=== PATIENT | female | born 1945 | race Caucasian/White ===

== ENCOUNTER → 2017-02-04 | Outpatient (CLI) | payer BC ==
--- NOTE | 2017-02-04 15:06 | DIAGNOSTIC IMAGING REPORT ---
VENOUS DOPP LOWER EXT UNILAT CLINICAL HISTORY: LLE PAIN AND SWELLING, FULLNESS OF POPLITEAL SPACE pain. Edema. TECHNIQUE: Venous Doppler COMPARISON STUDY: None FINDINGS: Normal venous Doppler. No evidence for deep venous thrombosis. Complex popliteal cyst posterior to left knee measuring 7 x 5 x 3 cm. IMPRESSION: 1. Study is negative for deep venous thrombosis . 2. complex popliteal cyst posterior to left knee measuring 7 x 5 x 3 cm The above report was generated using voice recognition software. It may contain grammatical, syntax or spelling errors. Electronically signed by: Dony Otto M.D. 02/04/2017 3:05 PM Dictated Date/Time: 02/04/2017 3:02 PM
== END | disposition home or self-care (01) ==
LOC: C.ULTR 14:39
PROVIDERS: ATTEND Nurse Practitioner Family
DX: R60.0 Localized edema (principal); M71.22 Synovial cyst of popliteal space [Baker], left knee

== ENCOUNTER → 2017-09-14 | Outpatient (CLI) | payer BC ==
--- NOTE | 2017-09-14 10:40 | DIAGNOSTIC IMAGING REPORT ---
ABDOMEN COMPLETE (US) CLINICAL HISTORY: Hepatitis. Abdominal pain. COMPARISON STUDY: No previous studies for comparison. FINDINGS: Liver morphology is normal. No hepatic lesions are identified by sonography. There is no biliary ductal dilatation. The pancreatic body is normal. The head and tail are slightly obscured. Gallbladder is normal. There are no gallstones. The size of the spleen is normal. The left kidney measures 11.7 cm and the right kidney measures 10.3 cm. There is no hydronephrosis. No calculi or masses are identified by sonography. Caliber of the abdominal aorta is normal. There is no ascites. IMPRESSION: Unremarkable abdominal ultrasound. Electronically signed by: Norberto Clemente M.D. 09/14/2017 10:38 AM Dictated Date/Time: 09/14/2017 10:37 AM
== END | disposition home or self-care (01) ==
LOC: C.ULTRBC 09:35
PROVIDERS: ATTEND Internal Medicine Gastroenterology
DX: R10.9 Unspecified abdominal pain (principal)

== ENCOUNTER 2023-06-24 10:38 | Observation (INO) ==
--- NOTE | 2023-06-04 15:20 | PAT Medication Instructions ---
Medication Instructions Date of Service June 04, 2023 Home Medications acetaminophen 500 mg capsule 1,000 mg PO Q6H PRN ascorbic acid (vitamin C) 500 mg tablet (Vitamin C) 1,000 mg PO QAM lactobacillus combination no.4 3 billion cell capsule (Probiotic) 3,000 mmu cells PO HS meloxicam 7.5 mg tablet 15 mg PO QAM multivitamin 1 tab PO QAM ASK your surgeon for instructions meloxicam 7.5 mg tablet 15 mg PO QAM DO NOT take the morning of surgery ascorbic acid (vitamin C) 500 mg tablet (Vitamin C) 1,000 mg PO QAM multivitamin 1 tab PO QAM Take morning of surgery With a small sip of water, OTHERWISE NOTHING TO EAT OR DRINK AFTER MIDNIGHT: acetaminophen 500 mg capsule 1,000 mg PO Q6H PRN(if needed) Take evening before surgery acetaminophen 500 mg capsule 1,000 mg PO Q6H PRN(if needed) lactobacillus combination no.4 3 billion cell capsule (Probiotic) 3,000 mmu cells PO HS Other Notes If you have any questions please call us at [phone] or [phone] or [phone] or [phone]
--- NOTE | 2023-06-08 13:40 | Anesthesiology Consultation ---
Date of Service June 08, 2023 Assessment & Plan (1) Encounter for pre-operative examination: - Infectious disease screening: Per assessment on 06/08/23: No known infectious disease contacts or current infectious disease symptoms. No noted recent Covid positive test result. - Outpatient joint assessment: Pt currently scheduled for inpatient pathway. If surgeon requests review for outpatient joint pathway, patient is not recommended candidate for outpatient joint program from anesthesia standpoint based on available information. - Patient acceptable risk for surgery pending surgeon-ordered PCP preop evaluation (Rosalva BUTT, appt 06/10). Chart Review Chart Review: Patient seen in Pre Admission Testing Teaching & Discussion Pre-Anesthesia Teaching/Discussion Notes: Instructed NPO after midnight before surgery,except medications with 15 cc of water. Medication instructions provided according to the PAT guidelines. History Surgery Operation Date: 06/24/23 10:40 Proposed Procedures p Left Total Hip Arthroplasty - Aramis Mullen MD Height/Weight Height: 5 ft 6 in Weight: 59.9 kg Allergies Allergy/AdvReac Type Severity Reaction Status Date / Time No Known Allergies Allergy Verified 06/04/23 14:25 Medications Home Medications Medication Instructions Recorded Confirmed Last Taken acetaminophen 500 mg capsule 1,000 mg PO Q6H PRN Pain 06/04/23 06/04/23 Unknown ascorbic acid (vitamin C) 500 mg 1,000 mg PO QAM 06/04/23 06/04/23 Unknown tablet (Vitamin C) lactobacillus combination no.4 3 3,000 mmu cells PO HS 06/04/23 06/04/23 Unknown billion cell capsule (Probiotic) meloxicam 7.5 mg tablet 15 mg PO QAM 06/04/23 06/04/23 Unknown multivitamin 1 tab PO QAM 06/04/23 06/04/23 Unknown Past Medical History Medical History Arthritis Positive CASA (antinuclear antibody) Per remote records Exercise / Class Metabolic Activity III < 4 Walking/Shop/Light housework Past Surgical History Surgical History Hx of bilateral cataract extraction Hx of colonoscopy Past Anesthesia History No Hx of Anesthesia Complications and No Family Hx of Anesthesia Complications History of PONV No Hx of Motion Sickness and History of PONV (1970s post-op child /delivery- nausea. No similar issues with other surgeries/anesthesia.) Social History Smoking Status: Former smoker Do You Dip or Chew Tobacco: No Smoking End Date: Quit 1998 Hx Alcohol Use: No Hx Substance Use: No substance use type: does not use Review of Systems Patient denies chest pain, shortness of breath, dyspnea on exertion, fever, chills, cough, wheezing, palpitations. Physical Exam Vital Signs BP 135/72 P 69 TEMP 98.9 SP02 96%RA RESP 16 Physical Mildly decreased cervical extension range of motion. Full TMJ range of motion. TMD 3 finger breaths Mallampati Score 3 Dentition: upper front bridge, missing sides/molars Lungs: clear throughout to auscultation Cardiac: regular rate and rhythm, no murmurs noted Spine: normal Carotid arteries: negative bruit Extremities: no LE edema Lab Results Anesthesia Preop Results Results Anesthesia Widget: WBC 5.44 K/ul (4.8-10.8) 06/08/23 Hgb 11.4 g/dl (12.0-16.0) L 06/08/23 Hct 35.2 % (37.0-47.0) L 06/08/23 Plt 324 K/uL (130-400) 06/08/23 Na 134 mmol/L (136-145) L 06/08/23 K 3.9 mmol/L (3.5-5.1) 06/08/23 Cl 99 mmol/L (98-107) 06/08/23 CO2 27 mmol/L (21-32) 06/08/23 BUN 14 mg/dl (6-23) 06/08/23 Creat 0.61 mg/dl (0.6-1.2) 06/08/23 Glucose Level 96 mg/dl (70-99(Fasting)) 06/08/23 PT 11.3 Seconds (9.0-12.0) 06/08/23 PTT 34 Seconds (21-31) H 06/08/23 INR 1.0 (0.9-1.1) 06/08/23 Urine Color Yellow 06/08/23 Urine Appearance Clear (Clear) 06/08/23 Urine pH 6.0 (4.5-7.5) 06/08/23 Urine Specific [place] 1.019 (1.000-1.030) 06/08/23 Urine Protein Negative (Negative) 06/08/23 Urine Glucose (UA) Negative (Negative) 06/08/23 Urine Ketones 2+ (Negative) H 06/08/23 Urine Blood Negative (Negative) 06/08/23 Urine Nitrite Negative (Negative) 06/08/23 Urine Bilirubin Negative (Negative) 06/08/23 Urine Urobilinogen Negative (Negative) 06/08/23 Urine Leukocyte Esterase Negative (Negative) 06/08/23 Blood Type A Positive 06/08/23 Antibody Screen NEGATIVE 06/08/23 Testing Electrocardiogram Date: 06/08/23 SR at 68bpm. PACs. PRWP, consider anterior IL vs lead placement vs LVH. Compared to 06/20/1998, QRS axis shifted left per senior vice president & general counsel comparison. Chest X-Ray Date: 06/08/23 FINDINGS: Cardiomediastinal and hilar silhouettes are within normal limits. No pneumothorax, pleural effusion or airspace consolidation. The bones appear grossly intact. Mild sigmoidal scoliosis of the spine. IMPRESSION: No acute process.
[~2023-06-24 10:38] MED LIST: BUPIVACAINE 0.5 % 5 MG/1 ML PF 10ML VIAL ONE
[2023-06-24] MEDS ORDERED: MIDAZOLAM HCL 1 MG/ML 2ML VIAL ONE (10:41)
[2023-06-24] MEDS ORDERED: fentaNYL citrate PF 100 MCG/2 ML VIAL ONE (10:41)
--- NOTE | 2023-06-24 11:06 | History & Physical Bridge Note ---
Date of Service June 24, 2023 History & Physical Bridge Note I have examined the patient, reviewed the History & Physical and in the interval since the performance of the History & Physical I have noted the following changes of clinical significance: no changes noted
[2023-06-24] MEDS: ACETAMINOPHEN 500 MG TAB PO SCH ×2 (11:20→15:35)
[2023-06-24] MEDS: LR 500ML BOLUS, THEN 15ML/HR IV SCH (11:20)
[2023-06-24] MEDS: LR 60ML/HR IV SCH (11:21)
[2023-06-24] MEDS: traMADol HCL 50 MG TABLET PO SCH (11:25)
[2023-06-24] MEDS ORDERED: fentaNYL citrate PF 100 MCG/2 ML VIAL IV PRN (11:25)
[2023-06-24] MEDS: CeleBREX 200 MG CAP PO SCH (11:25)
[2023-06-24] MEDS: FAMOTIDINE 20 MG TAB PO SCH (11:25)
[2023-06-24] MEDS ORDERED: ONDANSETRON INJ 2 MG/ML 2 ML VIAL IV PRN ×2 (11:25→13:18)
[2023-06-24] MEDS ORDERED: ATROPINE SULFATE 0.1 MG/ML 10ML SYR IV PRN (11:25)
[2023-06-24] MEDS ORDERED: ePHEDrine sulfate 50 MG/ML AMP IV PRN (11:25)
[2023-06-24] MEDS: dexAMETHasone**PF** 10 MG/ML VIAL IV SCH (11:26)
[2023-06-24] MEDS: Scopolamine 1 MG TDSY TD SCH (11:26)
[2023-06-24] MEDS: TRANEXAMIC ACID 1,000 MG **IV Pre-op IV SCH (11:39)
[2023-06-24] MEDS: ceFAZolin 2000MG 2,000 MG/15 ML SYR IV SCH ×2 (11:47→19:50)
[2023-06-24] MEDS: TRANEXAMIC ACID 1,000 MG **IV Intra-op IV SCH (12:42)
[2023-06-24] MEDS: ORTHO JOINT ANESTHETIC ONE (12:48)
[2023-06-24] MEDS: ROPIV 0.5% 246mg, Ketorolac 30mg, EPINEPHrine 0.5mg in NSS INFIL SCH (12:48)
--- NOTE | 2023-06-24 13:10 | Operative Report ---
Post Operative Report Pre & Post Diagnosis Operation Date: 06/24/23 11:20 Pre-Op Diagnosis: Left Hip Osteoarthritis Post-Op Diagnosis: Left Hip Osteoarthritis I identified the patient and participated in the time-out.: Yes Procedure Operation Date: 06/24/23 11:20 Actual Procedures p Left Total Hip Arthroplasty(Left) - Aramis Mullen MD Surgeon Aramis Mullen MD Professional Development Instructor CARLOS Saldaña PA-C. No resident or fellow was available to assist. Estimated Blood Loss 50 Findings Consistent with Post-Op Diagnosis Specimens Left femoral head Anesthesia Type Spinal MAC Complications none Disposition Disposition: Recovery Room Indications 77-year-old female with left hip osteoarthritis refractory to conservative management. X-rays demonstrate [id number]-[id number] disease, flattening of the lateral femoral head, and marginal osteophytes. I had a long discussion with her about the risks and benefits of surgery, alternatives to surgery, and expected outcomes. After reviewing all these she elected to proceed with surgery. All questions were answered. Informed consent was signed. Description of Procedure Patient was identified in the preoperative holding area where the surgical site, Left hip, was marked. A spinal anesthetic was placed, then the patient was brought back to the main operating room, placed in the operating table and moved into the lateral decubitus position. Axillary roll was placed. All bony prominences were padded. Perioperative antibiotics and tranexamic acid 1 gram IV were administered. The operative extremity was prepped and draped in the normal sterile fashion. Prior to incision a multidisciplinary timeout was called. All in the room were in agreement. We began by making an incision for a posterior approach to the hip. We dissected down through subcutaneous tissues to the level of the fascia. The fascia was incised in line with the incision. Charnley bow was placed. Fatty tissue was reflected posteriorly off the back of the greater trochanter to expose the piriformis and short external rotators of the hip. Quadratus femoris was taken off the femur subperiosteally. The piriformis and short external rotators were dissected off the posterior aspect of the hip. A box cut was made in the capsule. Inferior hip capsule was released off the femur. The femoral head was dislocated. The femoral neck cut was made at our preoperative template. The acetabulum was then exposed. The labrum was sharply excised. Contents of the cotyloid fossa were removed with electrocautery. We then began reaming at a size 8 mm less than our preoperative template. We reamed up by [address] the way up to a size with 54 mm cup. This gave us good bleeding cancellus bone circumferentially. The acetabulum was then irrigated out and dried. The real [place] Gription cup was then impacted down into position with 45 degrees of lateral opening and 25 degrees of anteversion. A single cancellous bone screw was placed up into the ilium. Excellent fixation was obtained. A trial liner for a 36 mm femoral head was then placed. Next we turned our attention to the femur. The lateral neck was removed with a box osteotome. Intramedullary guide was used to establish the intramedullary canal. We then broached all the way up to a size 2. We began trialing with a standard offset neck and a +5 head. Hip was reduced. Leg lengths were symmetric. The hip was stable in extension and external rotation, and stable in the sleeper position. At 90 degrees of hip flexion the hip could be internally rotated 70 degrees before levering out of the cup. I was very happy with the stability exam. Therefore the hip was dislocated and the femoral trial was removed. The acetabulum was re-exposed, and the trial liner was removed. [place] hole eliminator screw was placed. An Altrx polyethylene liner for a 36 mm femoral head was then impacted into the shell. The locking mechanism was checked to ensure that it had engaged which it had. The femur was re-exposed. The femoral canal was irrigated and dried. The real size 2 standard offset Actis femoral stem was opened up. This was impacted down into position. The 36 mm ceramic femoral head with + 5 mm offset was opened up and gently impacted down onto the trunnion. The hip was atraumatically reduced. Another 1 gram of IV tranexamic acid was started prior to closure. The wound was irrigated out with sterile Betadine solution. The periarticular injection cocktail was then placed. The short external rotators, piriformis, and posterior capsule were repaired through drill holes in the greater trochanter using #2 Vicryl. The fascia was run with a looped #1 PDS. The subcutaneous layer was closed with #1 PDS. The dermal layer was closed with 2-0 Vicryl. Zip line was used for the skin followed by a Silverlon dressing. A compressive dressing was then placed. The patient was then rolled supine. Leg lengths were rechecked and were symmetric. An abduction pillow was placed. Sedation was lifted and the patient was transferred to the recovery room in stable condition. Summary of implants: Depuy [place] Gription Acetabular Shell Sector Cup, 54 mm outer diameter [place] Cancellous bone screw, 6.5 x 40 mm [place] hole eliminator Princeton Altrx Polyethylene Acetabular Liner, Neutral, with a 36 mm inner diameter DePuy Actis collared cementless Femoral stem, 12/14 taper, size 2 standard 36 mm ceramic femoral head with +5 offset Postoperative course: Patient will be admitted overnight from the recovery room. Patient will be weightbearing as tolerated with posterior hip precautions. Aspirin for DVT prophylaxis I attest to the content of the Intraoperative Record and any orders documented therein. Any exceptions are noted below.
[2023-06-24] MEDS ORDERED: diphenhydrAMINE 50 MG/ML VIAL IV PRN (13:18)
[2023-06-24] MEDS ORDERED: MAGNESIUM HYDROXIDE SUSP 30 ML UDC PO PRN (13:18)
[2023-06-24] MEDS ORDERED: ALUMINUM/MAGNESIUM SUSP 30 ML UDC PO PRN (13:18)
[2023-06-24] MEDS ORDERED: HYDROmorphone INJ 0.5 MG/0.5 ML SYR IV PRN (13:18)
[2023-06-24] MEDS ORDERED: traMADol HCL 50 MG TABLET PO PRN (13:18)
[2023-06-24] MEDS ORDERED: METOCLOPRAMIDE HCL INJ 5 MG/ML 2 ML VIAL IV PRN (13:18)
[2023-06-24] MEDS ORDERED: bisacodyL 10 MG SUPP PR PRN (13:18)
[2023-06-24] MEDS ORDERED: NALOXONE HCL 0.4 MG/1 ML VIAL/CARP IV PRN (13:18)
[2023-06-24] MEDS ORDERED: oxyCODONE HCL IR 5 MG TAB (IMMEDIATE RELEASE) PO PRN (13:18)
--- NOTE | 2023-06-24 13:18 | Operative Report ---
Post Operative Report Pre & Post Diagnosis Operation Date: 06/24/23 11:20 Pre-Op Diagnosis: Left Hip Osteoarthritis Post-Op Diagnosis: Left Hip Osteoarthritis I identified the patient and participated in the time-out.: Yes Procedure Operation Date: 06/24/23 11:20 Actual Procedures p Left Total Hip Arthroplasty(Left) - Aramis Mullen MD Surgeon Aramis Mullen MD Second Worker CARLOS Saldaña PA-C. No resident or fellow was available to assist. Estimated Blood Loss 50 Findings Consistent with Post-Op Diagnosis Specimens femoral head Description of Procedure I was present during the entire procedure assisting with positioning, prepping, draping, wound retraction, wound closure, dressing and abduction pillow placement. No fellow present. Please see Dr. Mullen procedure note for specifics of the case. I attest to the content of the Intraoperative Record and any orders documented therein. Any exceptions are noted below.
[2023-06-24] MEDS ORDERED: ACETAMINOPHEN 500 MG TAB PO PRN (13:27)
--- NOTE | 2023-06-24 14:26 | Anesthesiology Progress Note ---
Date of Service June 24, 2023 Anesthesia Post Procedure Vital Signs Vital Signs: Temp Pulse Pulse Resp BP BP Pulse Ox 06/24/23 14:10 68 12 144/63 H 98 06/24/23 14:00 67 13 136/64 98 06/24/23 13:50 72 16 145/66 H 98 06/24/23 13:40 74 13 157/69 H 98 06/24/23 13:30 72 16 138/58 L 100 06/24/23 13:20 70 16 128/54 L 100 06/24/23 13:17 36.1 C L 71 14 116/58 L 98 06/24/23 10:55 06/24/23 10:55 36.8 C 66 18 190/86 H 99 O2 Del Method O2 Flow Rate 06/24/23 14:10 Room Air 06/24/23 14:00 Room Air 06/24/23 13:50 Room Air 06/24/23 13:40 Room Air 06/24/23 13:30 Room Air 06/24/23 13:20 Oxymask 6 06/24/23 13:17 Oxymask 6 06/24/23 10:55 Room Air 06/24/23 10:55 Room Air Pain Intensity Left Hip: Pain Intensity: 0 Transfer of Care Handoff Completed per policy Notes Mental Status: alert / awake / arousable Patient Amnestic to Procedure: Yes Nausea / Vomiting: adequately controlled Pain: adequately controlled Airway Patency, RR, SpO2: stable & adequate BP & HR: stable & adequate Hydration State: stable & adequate Anesthetic Complications: no major complications apparent and Pt Satisfied with anesthetic care
--- NOTE | 2023-06-24 15:26 | XRay Report ---
XR pelvis 1-2V routine CLINICAL HISTORY: In PACU - Post Surgical TECHNIQUE: A single frontal view of the pelvis was obtained. Comparison: Comparison is made to pelvis radiograph 06/08/2023 FINDINGS: Patient is status post total hip arthroplasty with expected postsurgical changes including soft tissu e swelling, and subcutaneous emphysema. No periarticular lucency or hardware fracture is seen. IMPRESSION: Expected postoperative appearance status post placement of total hip arthroplasty. ACT 112: Negative or not required by law. Electronically signed by: Gasper Cooper M.D. 06/24/2023 3:24 PM
[2023-06-24] MEDS: KETOROLAC TROMETHAMINE 15 MG/ML VIAL IV SCH (15:35)
[2023-06-24] MEDS: SODIUM CHLORIDE 0.9% 1,000 ML IV SCH (15:36)
[2023-06-24] MEDS: Scopolamine CHECK PATCH PLACEMENT SCH (19:50)
[2023-06-24] MEDS: ASPIRIN 81 MG ECTAB PO SCH (19:51)
[2023-06-24] MEDS: DOCUSATE SODIUM 100 MG CAP PO SCH (19:51)
[2023-06-24] MEDS: SENNA 8.6 MG TAB PO SCH (19:55)
[2023-06-24] MEDS: ADVANCED PROBIOTIC 625 MG CAPSULE PO SCH (19:56)
[2023-06-25 06:45] LABS: Basophils # (auto) 0.01 K/uL (0.00-0.20); Basophils % (auto) 0.1 %; Hematocrit (blood only) 29.2 % (37.0-47.0); Hemoglobin 9.4 g/dl (12.0-16.0); Immature Granulocytes # (auto) 0.06 K/uL (0.01-0.20); Immature Granulocytes % (auto) 0.7 %; Lymphocytes # (auto) 0.72 K/uL (1.20-3.40); Mean Corpuscular Hemoglobin 28.7 pg (25.0-34.0); Mean Corpuscular Hgb Conc 32.2 g/dL (32.0-36.0); Mean Corpuscular Volume 89.3 fL (80.0-100.0); Mean Platelet Volume 8.9 fL (9.4-12.4); Monocytes # (auto) 0.65 K/uL (0.11-0.59); Monocytes % (auto) 7.2 %; Neutrophils # (auto) 7.54 K/uL (1.40-6.50); Platelet Count 277 K/uL (130-400); RDW Coefficient of Variation 11.9 % (11.5-14.5); RDW Standard Deviation 37.9 fL (36.4-46.3); Red Blood Count 3.27 M/uL (4.20-5.40); White Blood Count 8.98 K/ul (4.8-10.8)
[2023-06-25 06:59] LABS: BUN Creatinine Ratio 22.2 (10-20); Calcium 8.4 mg/dl (8.6-10.3); Creatinine Clr Calc Pharmacy 81.4 ml/min; Est GFR (African American) 106.2 ml/min; Est GFR (Non-African American) 91.7 ml/min
[2023-06-25] MEDS: dexAMETHasone 4 MG TAB PO SCH (08:27)
[2023-06-25] MEDS: ASCORBIC ACID 500 MG TAB PO SCH (08:27)
[2023-06-25] MEDS: MULTIVITAMIN TAB PO SCH (08:27)
[2023-06-25] MEDS ORDERED: NON-FORMULARY MEDICATION (Multivitamin Tablet) PO SCH (09:00)
--- NOTE | 2023-06-25 09:43 | Orthopedic Progress Note ---
Date of Service June 25, 2023 Assessment & Plan (1) S/P total hip arthroplasty: Plan: Total hip precautions reviewed Weightbearing as tolerated with walker assistance PT/OT Ice with easy wrap Keep Silverlon dressing in place Abduction pillow use x 6 weeks DVT prophylaxis with ARETHA stockings and Aspirin Pain control with p.o. medication Plan is to discharge home later today with in-home physical therapy for the first 2 weeks Follow-up with [facility] as previously scheduled With questions contact our clinic at [phone] Admission and Anticipated Discharge Date Admission Date: June 24, 2023 Subjective This 77-year-old female is day 1 status post left total hip arthroplasty. Patient states she is doing very well. She states she really has no pain presently. Currently she denies chest pain, shortness of breath, fever, chills, sweats, numbness or tingling in her left lower extremity. She also denies nausea, vomiting, diarrhea voiding. Review of Systems Review of Systems: All systems reviewed & are unremarkable except as noted in Subjective Physical Exam Physical Exam: Left hip: Outer dressing was removed. Silverlon is clean dry and intact and left in place. Patient is able to actively dorsi and plantarflex her foot without issue. She is able to perform active straight leg raise test. Her quad strength is 3+ out of 5. She has no pain with logroll testing. Patient has no discomfort with light passive hip flexion near 90 degrees with light passive internal or external hip rotation. She is neurovascularly intact in the left lower extremity. Results & Data Vital Signs (Past 12 Hours) Vital Signs Temp Pulse Pulse Resp BP Pulse Ox O2 Del Method 06/25/23 07:45 36.7 C 53 L 20 132/66 98 Room Air 06/25/23 03:34 36.4 C L 62 18 124/68 97 Room Air 06/24/23 22:47 36.5 C 63 16 110/60 98 Room Air Diagnostic Findings Laboratory Results WBC 8.98 K/ul (4.8-10.8) 06/25/23 05:31 RBC 3.27 M/uL (4.20-5.40) L 06/25/23 05:31 Hgb 9.4 g/dl (12.0-16.0) L 06/25/23 05:31 Hct 29.2 % (37.0-47.0) L 06/25/23 05:31 MCV 89.3 fL (80.0-100.0) 06/25/23 05:31 MCH 28.7 pg (25.0-34.0) 06/25/23 05:31 MCHC 32.2 g/dL (32.0-36.0) 06/25/23 05:31 RDW Std Deviation 37.9 fL (36.4-46.3) 06/25/23 05:31 RDW Coeff of Jonathan 11.9 % (11.5-14.5) 06/25/23 05:31 Plt Count 277 K/uL (130-400) 06/25/23 05:31 MPV 8.9 fL (9.4-12.4) L 06/25/23 05:31 Immature Gran % (Auto) 0.7 % 06/25/23 05:31 Neut % (Auto) 84.0 % 06/25/23 05:31 Lymph % (Auto) 8.0 % 06/25/23 05:31 [place] % (Auto) 7.2 % 06/25/23 05:31 Eos % (Auto) 0.0 % 06/25/23 05:31 Baso % (Auto) 0.1 % 06/25/23 05:31 Neut # (Auto) 7.54 K/uL (1.40-6.50) H 06/25/23 05:31 Lymph # (Auto) 0.72 K/uL (1.20-3.40) L 06/25/23 05:31 [place] # (Auto) 0.65 K/uL (0.11-0.59) H 06/25/23 05:31 Eos # (Auto) 0.00 K/uL (0.00-0.50) 06/25/23 05:31 Baso # (Auto) 0.01 K/uL (0.00-0.20) 06/25/23 05:31 Immature Gran # (Auto) 0.06 K/uL (0.01-0.20) 06/25/23 05:31 Sodium 135 mmol/L (136-145) L 06/25/23 05:31 Potassium 4.0 mmol/L (3.5-5.1) 06/25/23 05:31 Chloride 103 mmol/L (98-107) 06/25/23 05:31 Carbon Dioxide 26 mmol/L (21-32) 06/25/23 05:31 Anion Gap 6 (3-11) 06/25/23 05:31 BUN 12 mg/dl (6-23) 06/25/23 05:31 Creatinine 0.54 mg/dl (0.6-1.2) L 06/25/23 05:31 Est Cr Clr Drug Dosing 81.4 ml/min 06/25/23 05:31 Est GFR ( Amer) 106.2 ml/min 06/25/23 05:31 Est GFR (Non-Af Amer) 91.7 ml/min 06/25/23 05:31 BUN/Creatinine Ratio 22.2 (10-20) H 06/25/23 05:31 Glucose 110 mg/dl (70-99(Fasting)) H 06/25/23 05:31 Calcium 8.4 mg/dl (8.6-10.3) L 06/25/23 05:31 Impressions Pelvis X-Ray 06/24/23 13:18 XR pelvis 1-2V routine CLINICAL HISTORY: In PACU - Post Surgical TECHNIQUE: A single frontal view of the pelvis was obtained. Comparison: Comparison is made to pelvis radiograph 06/08/2023 FINDINGS: Patient is status post total hip arthroplasty with expected postsurgical changes including soft tissue swelling, and subcutaneous emphysema. No periarticular lucency or hardware fracture is seen. IMPRESSION: Expected postoperative appearance status post placement of total hip arthroplasty. ACT 112: Negative or not required by law. Electronically signed by: Gasper Cooper M.D. 06/24/2023 3:24 PM
--- NOTE | 2023-06-25 10:52 | Discharge Summary ---
Date of Service June 25, 2023 Admission HPI Per Admitting Provider History of Present Illness Funmi is a 77-year-old female here today for preoperative history and physical for left total hip arthroplasty with Dr. Luis Antonio elliott. She has been dealing with bilateral hip pain but elected to proceed with getting her left hip replaced because that is the hip that is weaker for her. She has very limited mobility. She has difficulty putting on socks and shoes. She likes to be active outside and would like to get back to doing that. She did not try any injections as it was not recommended due to the end stages of her arthritis. She has difficulty lifting her left leg when climbing the stairs. She denies any history of heart attack, blood clots or stroke. No current liver disease however she reports that she did have hepatitis after having mono in 1963 but no lasting issues. She is not a smoker. Admission Exam Per Admitting Provider Physical Exam Vitals & Measurements T: 36.0 C HR: 77 (Monitored) RR: 18 BP: 140/70 SpO2: 97% HT: 157.5 cm WT: 59.6 kg WT: 59.600 kg (Dosing) BMI: 24.03 General: Pt is well nourished, seated on the exam table AA&O, in NAD, calm and cooperative during exam HENT: Nontraumatic, no gross deformity, hearing and vision grossly in-tact, PERRL Heart: +S1, +S2, RRR, no murmurs appreciated Lungs: CTABL, no wheezing appreciated ROM: Flexion 70/ External rotation 25/ Internal rotation 0 - Log roll + Impingement test + TANNER test + Stinchfield test - Tenderness over trochanteric bursa Principal Diagnosis Left hip osteoarthritis Discharge Exam Left hip: Outer dressing was removed. Silverlon is clean dry and intact and left in place. Patient is able to actively dorsi and plantarflex her foot without issue. She is able to perform active straight leg raise test. Her quad strength is 3+ out of 5. She has no pain with logroll testing. Patient has no discomfort with light passive hip flexion near 90 degrees with light passive internal or external hip rotation. She is neurovascularly intact in the left lower extremity. Discharge Data Allergies Allergy/AdvReac Type Severity Reaction Status Date / Time No Known Allergies Allergy Verified 06/24/23 10:53 Procedures Performed Operation Date: 06/24/23 11:20 Actual Procedures p Left Total Hip Arthroplasty(Left) - Aramis Mullen MD Hospital Course (1) S/P total hip arthroplasty: Patient had an uneventful overnight stay following left total hip arthroplasty. She states her pain is well-controlled with p.o. pain medication. She states she really does not have any pain at present. She is very pleased with the results of the surgery. She is planning on discharge home later this morning with interim physical therapy for the first 2 weeks. If she has questions or concerns or should arise prior to her 2-week postoperative follow-up, she will contact the clinic. Total hip precautions reviewed Weightbearing as tolerated with walker assistance PT/OT Ice with easy wrap Keep Silverlon dressing in place Abduction pillow use x 6 weeks DVT prophylaxis with ARETHA stockings and Aspirin Pain control with p.o. medication Plan is to discharge home later today with in-home physical therapy for the first 2 weeks Follow-up with [facility] orthopedics as previously scheduled With questions contact our clinic at [phone] Total Time Total Time Spent Total Time Spent (In Minutes): 25 mins Discharge Plan Discharge Items Patient Disposition: Home - Home Health Services Reason For Visit: Left Hip Osteoarthritis Discharge Diagnosis: Left hip osteoarthritis Activity: As commented below Lifting: None Bathing: Keep incision dry Bathing Comment: May shower tomorrow Sexual Activity: Wait until after follow-up appointment Exercise/Sports: Wait until after follow-up appointment Driving/Machine Use: No driving until cleared by orthopedic specialisst Weightbearing: Left weightbearing Weightbearing Comment: as tolerated with walker assistance Non-emergency contact: Surgeon Call non-emergency contact if: you have any medication questions, your pain is not controlled, your temperature is above 101.5, your wound has increased drainage and your wound pain has increased Follow-up/Referrals: PCP,NO [Primary Care Provider] - Diet: Regular Addtl Attending Provider Instructions: Post-operative Instructions Dear Patient and Family/Friends, Before you are discharged from the hospital, it is important to know what to expect when you get home after surgery. To that end, we have created this sheet of discharge instructions which covers many commonly asked questions. Make sure you go through this sheet in its entirety with your nurse before you are discharged. Please note that we will go over the specifics of your surgery and recovery when you return for your first post-operative visit. Sincerely, Dr. Mullen Medications 1. Oxycodone 5 mg: Take 1-2 tabs every 4-6 hours as needed for pain control. This will be sent to your pharmacy. 2. Meloxicam 7.5 mg: Take 2 tabs each morning for the first 30 days postoperatively for pain and inflammation relief. This will be sent to your pharmacy with 1 refill. 3. Aspirin 81 mg: Take 1 tab twice daily for the first 30 days postoperatively for blood clot prevention. Please purchase this medication 4. Extra strength Tylenol 500 mg: Take 2 tabs every 6-8 hours as needed for additional supplemental pain relief. Please purchase the medication. Pain Expect to be in a fair amount of pain after surgery. Remember, our goal is not to eliminate your pain, but to make it tolerable. It is a good idea to stay ahead of your pain by taking the medications you were prescribed once you get home. Typically, the pain starts improving 3-7 days after surgery. You should start weaning off the narcotic pain medication (oxycodone, hydrocodone, hydromorphone, morphine) as soon as your pain improves. Please call our office if your pain is not adequately controlled. Ice Ice your operative site at least 5 times a day for 15-30 minutes at a time. Make sure you have a thin cloth between the ice or cooling unit and your skin to prevent wright bite. This is especially important if you received a nerve block. Continue icing your operative site for the first 5-7 days after surgery, then as needed. Diet/Nausea/Vomiting Start by drinking clear liquids and eating crackers. If you can tolerate this, then you may resume your normal diet. If you feel nauseated or vomit, take Zofran/ondansetron (if prescribed). Please call our office if you have intractable nausea or vomiting, or, if after hours, you may go to the Emergency Room for help. Constipation Constipation is a common side effect of narcotic pain medication. If you have not had a bowel movement within 2 days after surgery, we recommend purchasing an over the counter laxative such as Milk of Magnesia, Dulcolax, or Miralax from a local pharmacy, and taking it as instructed. Call our clinic if any questions. Nerve block The anesthesia team sometimes places a nerve block to help with post-operative pain control. This results in significant numbness and inability to move the extremity. The nerve block usually wears off in 8-12 hours, but sometimes can last up to 24 hours. Please call our office if you are still unable to move your extremity after 24 hours, unless you received a pain pump to take home. Nerve blocks typically wear off quickly, so start taking pain medication as soon as you start feeling soreness near your surgical site. Weight bearing and Range of Motion. Do not bear any weight through your operative extremity immediately after surgery. If you had upper extremity surgery, do not lift anything with that arm. If you are in a knee brace, keep it locked in place until your follow-up. We will discuss your weight bearing, range of motion, and lifting restrictions in detail at your first post-operative appointment. Continuous Passive Motion (CPM) Machine If you were prescribed a CPM machine, it will start after your first post- operative appointment, at which time we will give you instructions on the range of motion settings and duration of treatment Physical therapy You will be given a prescription for physical therapy or occupational therapy at your first post-operative appointment. Typically, patients start therapy within 1 week of surgery Wound care and showering We will inspect your wound at your first post-operative visit, and may do a dressing change at that time. Most patients will be in a water-proof dressing that is removed 14 days after surgery. It is normal to see some dried blood on the dressing. Do not remove your dressing, paper strips or sutures yourself unless you are given permission. Showering is allowed the day after surgery. Do not scrub or remove any dressings. The wound should not be submerged underwater (i.e. in a bathtub or pool) until 4 weeks after surgery ARETHA stockings If you were given white stockings, these are to be worn at all times except to shower (on both legs) for the first 2 weeks after surgery. Driving You may not drive while taking narcotic pain medication or while in a cast, splint, sling or brace. You, the patient, need to make the final determination about when you are safe to drive, however, the earliest you may consider driving after surgery is below: Hand/Wrist/Elbow Surgery: 3 days Shoulder Surgery: 2 weeks Hip,/Knee/Ankle Surgery: 4 weeks Fracture repair: 6 weeks Return to Work Your return to work depends on what surgery was done and what type of work you do. Please bring any paperwork your employer needs completed to your first post-operative visit. Also, bring a description of your job duties, as this helps us to understand what risks you may face at work. Travel Avoid long distance travel (greater than 1 hour) in airplanes and cars for the first 6 weeks after surgery. If you must travel, you need to have a Doppler ultrasound done before you travel to rule out a blood clot in your legs. Follow-up You should have a follow-up appointment already scheduled 1-2 days after surgery. If not, please contact our office to make this appointment before you leave the hospital. When to call the office It is normal to have swelling and bruising in the limb that was operated on. This will improve with time. It is also normal to have fevers for the first 2 days after surgery. Reasons you should call your doctor include: Uncontrolled pain; Nausea, vomiting, or constipation that does not improve with medication; Fevers over 101.5, chills, sweats; Drainage or bleeding from the wound; Foul odor; Spreading areas of redness; Any other concerns Pending Studies at Discharge: No Stand-Alone Forms: My [facility] Medications and DC Order Prescriptions: New aspirin 81 mg Tablet,Delayed Release (Dr/Ec) 81 mg PO BID 30 Days Qty: 60 0RF meloxicam 7.5 mg Tablet 15 mg PO QAM 30 Days Qty: 60 1RF oxycodone 5 mg Tablet 5 - 10 mg PO Q4H MDD max 6 tabs/day PRN (Reason: Post op pain control) Qty: 28 0RF Continued multivitamin Tablet 1 tab PO QAM meloxicam 7.5 mg Tablet 15 mg PO QAM ascorbic acid (vitamin C) [Vitamin C] 500 mg Tablet 1,000 mg PO QAM acetaminophen 500 mg Capsule 1,000 mg PO Q6H PRN (Reason: Pain) Patient Comments: has been taking QID every day Probiotic 3 billion cell Capsule 3,000 mmu cells PO HS Rx Instructions: administer with a meal Krames/Other Patient Handouts: DVT Post Op Prevention Admission Data Admit Date/Time: 06/24/23 13:18 Attending Provider: Aramis Mullen Admit Provider: Aramis Mullen Primary Care Provider: PCP,NO Other Providers: [facility] Other Interventions: Discharge Summary Assessment (RN) Last Done: 06/25/23 10:04
--- OUTSIDE RECORDS SUMMARY | 2023-06-25 16:12 | External Medical Summary | Continuity of Care Document ---
Author Name Unknown Organization [address] [id number] Care Team Providers [facility] [employer] Director Name Role Phone Rosalva Tucker Primary Care Physician [phone] [id number] Date(s): 06/11/23 - 06/11/[address] [address] [phone] Encounter Diagnosis Bilateral hip pain(Discharge Diagnosis) - 06/11/23 Pre-op exam(Discharge Diagnosis) - 06/11/23 Discharge Disposition: Home or Self Care Attending Physician: FILOMENA Tucker Tara Allergies, Adverse Reactions, Alerts No Known Allergies Assessment and Plan Extracted from: Title:Preop Author:FILOMENA Tucker Tara Date:06/11/23 1.Pre-op exam 2.Bilateral hip pain Left total hip arthroplasty with Dr. Fregoso 06/24/23.Pt had preop testing done. Her laboratory studies were unremarkable. Her EKG however showedpoor R wave progression, consider anterior CO versus lead placement versus LVH. RepeatEKG in the office todaypossible left atrial enlargement and also possible septal infarct of undetermined age. This was reviewed by Dr. Chery who agreed. I am going to refer the patient for a stress echo to be done prior to her surgery. She denies having any chest pain shortness of breath pain radiating up into the neck or into the left arm. Patient's chest x-ray was negative. Will await results forstress echo prior to completelystatingthatit is okay to proceed with surgery. time spent reviewing chart, face to face visit, ordersand documentation: 42 min Immunizations Given and Recorded Vaccine Date Status Refusal Reason influenza virus vaccine, inactivated 12/02/22 Give n influenza virus vaccine, inactivated 11/04/20 Give n SARS-CoV-2 mRNA (tozinameran 5y-11y) 12/16/21 Lawrence rded SARS-CoV-2 (COVID-19) mRNA BNT-162b2 vax 11/13/20 Given pneumococcal 13-valent vaccine 11/18/16 Recorded zoster vaccine live 09/04/11 Recorded Medications Probiotic Formula oral capsule Start: 06/11/23 13:13:00 EDT Start Date: 06/11/23 Status: Ordered Tylenol Start: 06/08/23 12:40:00 EDT Start Date: 06/08/23 Status: Ordered Mental Status 06/11/23 Barriers to Learning one year None evide nt Mandatory Health Literacy Documentation Yes Health Literacy Communication Barriers N ever Primary Language Luxembourgish Problem List Condition Confirmation Course Effective Dates Status Health St atus Informant Actinic keratoses Confirmed Active Other meniscus derangements, posterior horn of lateral meniscus, left knee Confirmed Active Bilateral hip pain Confirmed Active History of actinic keratosis Confirmed Active History of Lyme disease Confirmed Active Cyst of left knee joint Confirmed Active Milia Confirmed Active 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 Osteoporosis Confirmed Active Synovial cyst of popliteal space [Wilson], left knee Confirmed Active Hallux rigidus, right foot Confirmed Active Diagnosis Diagnosis Type Effective Dates Health Status Cl inical Service Informant Bilateral hip pain Discharge Diagnosis 06/11/23 Pre-op exam Discharge Diagnosis 06/11/23 Non-Specified Procedures Procedure Date Related Diagnosis Body Site Status Ultrasound scan-Abdomen 1 09/14/17 Completed Procedure 2 02/04/17 Completed Shave biopsy 01/28/15 Completed colonoscopy more 10 years ago Completed 1Unremarkable abdominal US 2Venous dopplar lower extremity unilat Study is negative for deep venous thrombosis Complex popliteal cyst posterior to left knee measuring [id number] Vital Signs Most recent to oldest [Reference Range]: 1 Height 167 cm (06/11/23 1:13 PM) Patient Weight 58.9 kg (06/11/23 1:13 PM) Body Mass Index 21.12 kg/m2 (06/11/23 1:13 PM) Heart Rate 74 bpm (06/11/23 1:13 PM) Respiratory Rate 14 br/min (06/11/23 1:13 PM) Blood Pressure 140/68mmHg (06/11/23 1:13 PM) Cuff Pulse Pressure 72 mmHg (06/11/23 1:13 PM) Social History Social History Type Response Smoking Status Former Smoker, quit > 1 yr Sex Female [facility] Outpt Note * FILOMENA Tucker Tara: PERFORM, MODIFY Event Display: [facility] Outpt Note Authored Date: [id number] Chief Complaint pre op for left hip replacement 06/24/23 History of Present Illness left total hip arthroplasty with Dr. Fregoso 06/24/23. No Claudication No Chest pain No SOB 2 [address] of steps Personal hx of anesthesia complicationsshe has never had general anesthesia No Family hx of anesthesia complications No Personal of hx of VTE, bleeding dyscrasia No Family hx of VTE Dad at age 56 from [place] Previous smoker quit at age 51. She had 30 pack years No etoh or illicit drugs 1. Do you snore loudly (louder than talking or loud enough to be heard through closed doors)? no 2. Do you often feel tired, fatigued or sleepy during daytime hours? no 3. Has anyone observed you stopping breathing during your sleep? no 4. Do you have or are you being treated for high blood pressure? no 5. BMI more than 35kg/m2? no 6. Is your age over 50 years old? yes 7. Is your neck circumference greater than 17 if you are a male or 16 if you are a female? no 8. Are you a male?no - High risk of HUMERA yes to three or more items Low risk of HUMERA yes to less than three items Review of Systems Constitutional: No fever, chills, sweats EENT:No vision change, eye pain, rhinorrhea, sinus pain, epistaxis, dysphagia, change in hearing,tinnitus, vertigo, oral ulcers or lesions. Pulmonary: No shortness of breath, dyspnea with exertion, cough, hemoptysis, wheezing, chest pain. Cardiovascular: No chest pain, palpitations, syncope, edema, cyanosis, claudication, orthopnea. Musculoskeletal: No joint swelling or pain, muscle pain, back pain Neurologic: No headache, lightheadedness, dizziness, muscle weakness, paresthesias, change in speech. Psychiatric: No depression, anxiety, hallucinations, noris, suicidal/homicidal thoughts, binging, purging Dermatologic: No rash, new/growing/changing skin lesions Endocrine: No weight change, heat or cold intolerance, tremor, insomnia, polyuria, polydipsia, polyphagia, abnormal hair growth, change in nails Physical Exam Vitals & Measurements HR:74(Monitored) RR:14 BP:140/68 SpO2:98% HT:167cm WT:58.9kg WT:58.900kg(Dosing) BMI:21.12 PHQ2 Data(Data Documented on:06/11/2023 13:13) Emotional health assessment NEGATIVE head- normocephalic neck-no lymphadenopathy, masses, or thyromegaly, +carotid pulses, no bruits, trachea midline Pulmonary- chest expansion symmetric, CTA (clear to auscultation), eupnea, no adventitious sounds (rales, crackles, wheezes) CV (cardiovascular)- RRR no m/r/g (systolic ejection murmur, rubs, gallops), good peripheral perfusion extremitiesNo edema or erythema. skin-good turgor w/o lesions, redness, cyanosis, edema nails- no clubbing or deformities w good cap refill Neuro:Alert, Oriented Psy:no homicidal or suicidal ideations. Assessment/Plan 1.Pre-op exam 2.Bilateral hip pain Left total hip arthroplasty with Dr. Fregoso 06/24/23.Pt had preop testing done. Her laboratorystudies were unremarkable. Her EKG however showedpoor R wave progression, consider anterior CO versus lead placement versus LVH. RepeatEKG in the office todaypossible left atrial enlargement and also possible septal infarct of undetermined age. This was reviewed by Dr. Chery who agreed.I am going to refer the patient for a stress echo to be done prior to her surgery. She denies having any chest pain shortness of breath pain radiating up into the neck or into the left arm. Patient's chest x-ray was negative. Will await results forstress echo prior to completelystatingth atit is okay to proceed with surgery. time spent reviewing chart, face to face visit, ordersand documentation: 42 min Problem List/Past Medical History Ongoing Actinic keratoses Bilateral hip pain Cyst of left knee joint Hallux rigidus, right foot History of actinic keratosis History of Lyme disease Milia Neoplasm of uncertain behavior of skin Osteoporosis Other meniscus derangements, posterior horn of lateral meniscus, left knee Synovial cyst of popliteal space [Wilson], left knee Historical Osteoarthritis of right foot Procedure/Surgical History Ultrasound scan-Abdomen| Service Date: 09/14/2017Procedure| Service Date: 02/04/2017Shave biopsy| Service Date: 01/28/2015colonoscopy more 10 years ago Medications acetaminophen(Tylenol) bifidobacterium-lactobacillus(Probiotic Formula oral capsule) Allergies NKA Social History Smoking Status Former Smoker, quit > 1 yr Family History Heart attack: Father. High Blood Pressure: Father. Health Status Family Member(s) Immunizations Vaccine Date Status influenza virus vaccine, inactivated 12/02/2022 Given SARS-CoV-2 mRNA (tozinameran 5y-11y) 12/16/2021 Recorded SARS-CoV-2 (COVID-19) mRNA BNT-162b2 vax 11/13/2020 Given influenza virus vaccine, inactivated 11/04/2020 Given pneumococcal 13-valent vaccine 11/18/2016 Recorded zoster vaccine live 09/04/2011 Recorded Recommendations Health Maintenance Pending(in the next year) Due Adult COVID-19 Vaccination due06/11/23Unknown Frequency Adult Social Determinants of Health Screening due06/11/23Unknown Frequency Adult Tdap/Td Vaccine due06/11/23Unknown Frequency Medicare Annual Wellness Visit due06/11/23and every 1year Pneumococcal Vaccine Older Adults due06/11/23One-time only Shingles Vaccine due06/11/23One-time only Due In Future Adult Influenza Vaccine not due until08/08/23and every 1year Satisfied(in the past 1 year) Satisfied Adult Influenza Vaccine on12/02/22.Satisfied by ANABELLE Castañeda Bobbi Body Mass Index on06/11/23.Satisfied by ANABELLE Castañeda Bobbi Electronic Signature on File CC: Lindy Bird PA-C [address] [id number] CC: Aramis Mullen MD [address] [address] Electronically Reviewed/Signed by: FILOMENA [place] Author Signature Dt/Tm:06/11/2023 03:05 PM Department of Family Medicine Electronically Reviewed/Signed by: FILOMENA [place] Cosigner Signature Dt/Tm: 06/11/2023 03:07 PM Department of Family Medicine TB Patient Care team information Care Team Personnel Name: FILOMENA Tucker Tara Position: Nurse Pract - Family Med Member Role: Primary Care Provider Address: Address: [address] [place] [address], [place] [address] Care Team Related Persons Name: THEA ELIZABETH Address: [address] [place] [id number]"
--- OUTSIDE RECORDS SUMMARY | 2023-06-25 16:12 | External Medical Summary | Continuity of Care Document ---
Author Name Unknown Organization [place] [id number] [facility] Address [address] [place], [place] [id number] Care Team Providers Care Safety Equipment Tester Name Role Phone Rosalva Tucker Primary Care Physician [phone] [id number] Date(s): 06/18/23 - 06/18/[address], [address] [place] [address] [phone] Discharge Disposition: Home or Self Care Attending Physician: FILOMENA Tucker Tara Referring Physician: FILOMENA Tucker Tara Allergies, Adverse Reactions, Alerts No Known Allergies Immunizations Given and Recorded Vaccine Date Status [...] 12:40:00 EDT Start Date: 06/08/23 Status: Ordered Problem List Condition Confirmation Course Effective Dates [...] Active Hallux rigidus, right foot Confirmed Active Procedures Procedure Date Related Diagnosis Body Site Status Ultrasound scan-Abdomen 1 09/14/17 Completed Procedure 2 02/04/17 Completed Shave biopsy 01/28/15 Completed colonoscopy more 10 years ago Completed 1Unremarkable abdominal US 2Venous dopplar lower extremity unilat Study is negative for deep venous thrombosis Complex popliteal cyst posterior to left knee measuring [id number] Results Radiology Reports * Exam Date Time Procedure Performing Provider Status 06/18/23 2:56 PM Echo Stress, Pharmacologic Tr Webster ae; Final Notes: (Echo Stress, Pharmacologic) Reason For Exam: ekg for preop testing showed slow r wave progression and possible septal infarct age indeterminant Echo Stress, Pharmacologic Report Signatures Stress ECG Finalized by Dr. Bobby Maki MD on 06/18/2023 04:59 PM Echo Finalized by Dr. Bobby Maki MD on 06/18/2023 04:59 PM [place] Act 112: No-No further action needed Summary 1. Negative pharmacologic stress ECG and echocardiogram and EKG for ischemia at 89% MPHR. 2. Tolerated Dobutamine protocol well, no adverse effects. Denies chest pain or dyspnea. Supervising: Lena Motta RN BMI: 20.99 Patient Info Name: PAIGE ELIZABETH Age: 77 years : 1945 Gender: Female Ht: 168 cm Wt: 59 kg BSA: 1.66 m2 Technical Quality: Good Exam Date: 06/18/2023 2:20 PM Exam Location: [facility] Patient Status: Outpatient Staff Ordering Physician: Rosalva Tucker Snorkelling Instructor: Miley Webster RDCS, STEPHANIET Attending Physician: Rosalva Tucker Study Info CPT 91910 - Indications R9431 - Abnormal electrocardiogram ECG EKG Z01.810 - Preoperative Exam Procedure(s) * A Dobutamine stress echocardiogram is performed. Exam Type: Pharm Stress 4 ECG Summary Negative exercise ECG for ischemia. Protocol: Dobutamine Rest HR: 68 bpm Peak HR: 128 bpm Rest Sys BP: 176 mmHg Peak Sys BP: 176 mmHg Max Pred HR: 144 bpm % Max Pred HR: 89 % Target HR: 122 bpm Max RPP: 22,528 bpm*mmHg Target HR Summary: Test terminated after reaching target heart rate (85% max predicted) Termination Reason: Target HR > 85% MPHM Cardiac Symptoms: None Total Time: 13 min : 0 sec Rest Niño BP: 76 mmHg Peak Niño BP: 72 mmHg Stress ECG Details Peak Dobutamine Dose: 30 g/kg Resting ECG Normal sinus rhythm, possible septal NC age indeterminate. Stress ECG No abnormal ST/T wave changes with exercise. Arrhythmias Rare PVC and PAC. Stress Echo Findings Left Ventricle Left ventricle becomes smaller and more vigorous with Dobutamine infusion. Normal LV wall motion response to Dobutamine infusion. Normal augmentation of all wall segments without evidence of ischemia with pharmacologic stress. Left Ventricle Normal left ventricular size and systolic function with no regional wall motion abnormalities. Ejection fraction as calculated by Biplane Simpsons method is 60-65%. Mild concentric left ventricular hypertrophy. Ventricles Name Value Normal LV Dimensions 2D/MM IVS Diastolic Thickness (2D) 0.9 cm 0.6-0.9 LVID Diastole (2D) 3.4 cm 3.3-5.1 LVIW Diastolic Thickness (2D) 1.0 cm 0.6-0.9 LVID Systole (2D) 2.2 cm 2.2-3.5 LV Mass (2D Cubed) 97.49 g 67.00-162.00 LV Mass Index (2D Cubed) 0.01 g/cm2 0.00-0.01 Relative Wall Thickness (2D) 0.60 LV Fractional Shortening/Ejection Fraction 2D/MM LV Fractional Shortening (2D) 36 % 27-45 LV Diastolic Volume (4C MOD) 54 ml LV Diastolic Volume (2C MOD) 56 ml LV Diastolic Volume (BP MOD) 55 ml 46-106 LV Diastolic Volume Index (BP MOD) 33.16 ml/m2 29.00-61.00 LV Systolic Volume (BP MOD) 21 ml 14-42 LV Systolic Volume Index (BP MOD) 12.61 ml/m2 8.00-24.00 LV EF (BP MOD) 62 % 58-69 LV SV (BP MOD) 34.03 ml LV End Diastolic Volume (BP A-L) 58.44 ml LV End Systolic Volume (BP A-L) 20.62 ml LV EF (BP A-L) 65 % Final Signed by:DO Maki Jason D Signed (Electronic Signature):06/18/2023 2:20 p Social History Social History Type Response Smoking Status Former Smoker, quit > 1 yr Sex Female Patient Care team information Care Team Personnel Name: FILOMENA Tucker Tara Position: Nurse Pract - Family Med Member Role: Primary Care Provider Address: Address: [address] [place] [address], [place] [address] Care Team Related Persons Name: THEA ELIZABETH Address: home [address] [place], [place] [phone]
--- OUTSIDE RECORDS SUMMARY | 2023-06-25 16:13 | External Medical Summary | Continuity of Care Document ---
Author Name Unknown Organization [place] [id number] Address [address] [place] [id number] Care Team Providers Care Studio Manager Name Role Phone Lydiajosé Rosalva Primary Care Physician [phone] Encounter [facility] [id number] Date(s): 06/08/23 - 06/08/23 [facility] [address] [place] [id number] [facility] [address] [id number] Encounter Diagnosis Osteoarthritis of left hip(Discharge Diagnosis) - 06/08/23 Discharge Disposition: Home or Self Care Attending Physician: HERBERT Bird Madison Referring Physician: MD Sebas, Aramis Rios Allergies, Adverse Reactions, Alerts No Known Allergies Immunizations Given and Recorded Vaccine Date Status Refusal Reason influenza virus vaccine, inactivated 12/02/22 Give n influenza virus vaccine, inactivated 11/04/20 Give n SARS-CoV-2 mRNA (tozinameran 5y-11y) 12/16/21 Lawrence rded SARS-CoV-2 (COVID-19) mRNA BNT-162b2 vax 11/13/20 Given pneumococcal 13-valent vaccine 11/18/16 Recorded zoster vaccine live 09/04/11 Recorded Medications Mobic 7.5 mg oral tablet Start: 04/12/23 8:22:00 EST, 1 tab, PO, Daily, Disp# 60 tab, Refills: 6, can take 1-2 tabs daily., Pharmacy: [facility] [id number] [facility] Start Date: 04/12/23 Stop Date: 11/08/23 Status: Ordered multivitamin Start: 05/26/22 15:36:00 EDT, 1 tab, PO, Daily Start Date: 05/26/22 Status: Ordered Tylenol Start: 06/08/23 12:40:00 EDT Start Date: 06/08/23 Status: Ordered Vitamin C Start: 05/26/22 15:36:00 EDT Start Date: 05/26/22 Status: Ordered Mental Status 06/08/23 Barriers to Learning one year None evide nt Mandatory Health Literacy Documentation Yes Health Literacy Communication Barriers N ever Primary Language American Problem List Condition Confirmation Course Effective Dates [...] Diagnosis Diagnosis Type Effective Dates Health Status Clinical Service Informant Osteoarthritis of left hip Discharge Diagnosis 06/08/23 Procedures Procedure Date Related Diagnosis Body Site Status Ultrasound scan-Abdomen 1 09/14/17 Completed Procedure 2 02/04/17 Completed Shave biopsy 01/28/15 Completed colonoscopy more 10 years ago Completed 1Unremarkable abdominal US 2Venous dopplar lower extremity unilat Study is negative for deep venous thrombosis Complex popliteal cyst posterior to left knee measuring [id number] Vital Signs Most recent to oldest [Reference Range]: 1 Height 157.5 cm (06/08/23 12:38 PM) Patient Weight 59.6 kg (06/08/23 12:38 PM) Body Mass Index 24.03 kg/m2 (06/08/23 12:38 PM) Temperature [36.5-37.9 DegC] 36.0 DegC *LOW* (06/08/23 12:38 PM) Heart Rate 77 bpm (06/08/23 12:38 PM) Respiratory Rate 18 br/min (06/08/23 12:38 PM) Blood Pressure 140/70mmHg (06/08/23 12:38 PM) Cuff Pulse Pressure 70 mmHg (06/08/23 12:38 PM) Social History Social History Type Response Smoking Status Former Smoker, quit > 1 yr Sex Female History and physical note * HERBERT Bird Madison: PERFORM Event Display: .HP Authored Date: [id number] Primary Care Provider FILOMENA Tucker Tara Referring Provider MD Sebas, Aramis K Chief Complaint pre op History of Present Illness Funmi is a 77-year-old female here today for preoperative history and physical for left total hip arthroplasty with Dr. Luis Antonio elliott. She has been dealing with bilateral hip pain but elected to proceed with getting her left hip replaced because that is the hip that is weaker for her. She has very limited mobility. She has difficulty putting on socks and shoes. She likes to be active outside and would like to get back to doing that. She did not try any injections as it was not recommended due to the end stages of her arthritis. She has difficulty lifting her left leg when climbing the stairs. She denies any history of heart attack, blood clots or stroke. No current liver disease however she reports that she did have hepatitis after having mono in 1963 but no lasting issues. She is not a smoker. Review of Systems DeniesRecent illnesses, colds/flu, pneumonia, COVID or COVID exposures; DeniesFevers, chills, malaise; DeniesChest pain, heart palpitations; DeniesShortness of breath, cough; DeniesHeadacheor blurry vision; DeniesAbdominal pain, nausea, vomiting, diarrhea, or urinary symptoms Physical Exam Vitals & Measurements T:36.0C HR:77(Monitored) RR:18 BP:140/70 SpO2:97% HT:157.5cm WT:59.6kg WT:59.600kg(Dosing) BMI:24.03 General: Pt is well nourished, seated on the exam table AA&O, in NAD, calm and cooperative during exam HENT: Nontraumatic, no gross deformity, hearing and vision grossly in-tact, PERRL Heart: +S1, +S2, RRR, no murmurs appreciated Lungs: CTABL, no wheezing appreciated ROM: Flexion 70/ External rotation 25/ Internal rotation 0 -Log roll +Impingement test +TANNER test +Stinchfield test -Tenderness over trochanteric bursa [1] Diagnostic Results 3 view pelvis and left hip x-rays were done today in the office 05/12/2023 per preop protocol with sizing ball that shows severe end-stage osteoarthritis in the bilateral hips Assessment/Plan 1.Osteoarthritis of left hip pre op The risks and benefits of surgery as well as the post operative course was explained and discussed with the patient. Written consent obtained. The patient's past medical history, surgeries, social history, medication list, allergies and PDMP were reviewed and confirmed with the patient. Ludwig needmedical clearanceand has an appointment with Rosalva Tucker on 06/10. She sees PAT today. All of her preoperativetesting will be done at the hospital and orders were placed today. We discussed postoperative pain medications includingoxycodone, tylenol, diclofenac,as well as icing and elevating to control pain. DVT prophylaxis -ASA 81mg BID x 6 weeks and ARETHA stockings x 2 weeks. Additional medications -stool softener as needed to prevent constipation while on narcotics. The patient has been scheduled for post operative appointments, including any PT or HH services, per surgeon's preference. Home health and PT prescription were placed today. She would like to do PTcloser to home. [place] already have a walkerand other necessary equipment. The patient was given a preoperative booklet and we reviewed the most pertinent things leading up to the surgery and the day of surgery; including any assisted devices pt may need, when/who to call for the surgery time, where to arrive the day of surgery, NPO after midnight, medications to hold, prepping the skin with CHG to prevent infection etc. All of their questions and concerns were answered today. They were instructed to call our office if they have any further questions or concerns. Problem List/Past Medical History Ongoing Actinic keratoses [...] 01/28/2015colonoscopy more 10 years ago Medications acetaminophen(Tylenol) ascorbic acid(Vitamin C) meloxicam(Mobic 7.5 mg oral tablet), 7.5 mg= 1 tab, PO, Daily, 6 refills multivitamin, 1 tab, PO, Daily Allergies NKA Social History Smoking Status Former [...] the next year) Due Adult COVID-19 Vaccination due06/09/23Unknown Frequency Adult Social Determinants of Health Screening due06/09/23Unknown Frequency Adult Tdap/Td Vaccine due06/09/23Unknown Frequency Medicare Annual Wellness Visit due06/09/23and every 1year Pneumococcal Vaccine Older Adults due06/09/23One-time only Shingles Vaccine due06/09/23One-time only Due In Future Adult Influenza Vaccine not due until08/08/23and every 1year Satisfied(in the past 1 year) Satisfied Adult Influenza Vaccine on12/02/22.Satisfied by ANABELLE Castañeda Bobbi Body Mass Index on06/08/23.Satisfied by ANABELLE Mathew Kelley [1]Aramis Mullen; Charo Ricci 05/14/2023 14:51 EDT Electronic Signature on File Electronically Reviewed/Signed by: Lindy Bird PA-C Author Signature Dt/Tm:06/09/2023 04:44 PM Physician Dianetic Counselor, Dept. of Orthopaedics and Sports Medicine [facility] [address], [address] [place] [id number] Electronically Reviewed/Signed by: Aramis Mullen MD Cosigner Signature Dt/Tm: 06/10/2023 03:05PM Division of Sports Medicine [place] Patient Care team information Care Team Personnel Name: FILOMENA Tucker Tara Position: Nurse Pract - Family Med Member Role: Primary Care Provider Address: Address: [address] [place] [address] [place] Care Team Related Persons Name: THEA ELIZABETH Address: home [address] [place] [address] [place] [phone]"
[2023-06-26] MEDS ORDERED: MELOXICAM 7.5 MG TAB PO SCH (09:00)
== END 2023-06-25 12:49 | disposition home health service (06) ==
LOC: ASU 10:38 → 3E 10:38

== ENCOUNTER 2023-10-07 11:03 | Observation (INO) ==
--- NOTE | 2023-09-17 16:54 | History & Physical Report ---
Date of Service September 17, 2023 Assessment & Plan (1) Osteoarthritis of right hip: Plan: PRE-OP Diagnosis: Right hip osteoarthritis Planned Procedure: Right total hip arthroplasty Plan: Patient is scheduled to undergo this procedure at the [facility] with a 23-hour observation admission with Dr. Mullen on September. Risks and complications of the procedure such as: Infection, bleeding, pain, scarring, nerve blood vessel damage, weakness, wound problems, stiffness, incomplete relief of symptoms, hardware failure, hardware loosening, wear, fracture, tendon or ligament injury, dislocation, leg length inequality, blood clots, Embolism, heart attack, stroke and were explained to the patient at her visit today. Informed consent to perform the procedure was obtained. Patient has an appointment to meet with anesthesia later this afternoon and while there will obtain CBC with differential, complete metabolic panel, PT/INR, blood type and screen, urinalysis, urine culture and sensitivity, EKG, and a nasal culture for MRSA. Patient will also need preoperative medical clearance from their primary care provider Rosalva Tucker. Patient states that she plans on doing in-home physical therapy for the first 1 to 2 weeks postoperatively with [facility]. Patient states that she will most likely elect to do outpatient physical therapy at [facility]. Patient has a walker, raised toilet seat, shower chair and a hip kit from her previous left total hip arthroplasty. During today's visit we reviewed the total hip packet as well as precautions. We discussed discharge planning from the hospital. I provided paperwork to obtain a handicap placard for their vehicle. We discussed lectures offered by [facility] in regards to joint replacement surgery via Zoom. I advised the patient that upon discharge from hospital we will prescribe a narcotic pain medication and anti- inflammatory. Patient will also be on an 81 mg aspirin twice daily for blood clot prevention. Patient will be scheduled for 2-week postoperative follow-up visit with myself on October 19. This chart was completed utilizing [employer] voice recognition software. Grammatical errors, random word insertions, pronoun errors, and in complete sentences are an occasional consequence of the system. Any questions or concerns about the content, text, or information contained within the body of this dictation should be addressed directly to the physician for clarification. History of Present Illness Chief Complaint: Chief Complaint: Right hip pain Primary Care Provider: Rosalva Tucker History of Present Illness (including history relevant to procedure): This 78-year-old female presents to the clinic today for preoperative history and physical. Patient has a longstanding history of right hip pain. She had her left hip replaced back in mid June of this year and has had great results but has noticed increased pain with ambulation in her right hip. She is elected to proceed with surgical intervention at this time. Review Of Systems: A 12 point review of systems is performed and is unremarkable except for those things to in the HPI and past medical history. Past Medical History: Problems: S/P total left hip arthroplasty Osteoporosis Hallux rigidus, right foot Bilateral hip pain Synovial cyst of popliteal space [Wilson], left knee Other meniscus derangements, posterior horn of lateral meniscus, left knee Cyst of left knee joint History of actinic keratosis Actinic keratoses Milia Neoplasm of uncertain behavior of skin History of Lyme disease Procedure History Procedure Procedure Date Comments colonoscopy more 10 years ago Ultrasound scan-Abdomen 09/14/2017 - Unremarkable abdominal US Procedure 02/04/2017 - Venous dopplar lower extremity unilatStudy is negative for deep venous thrombosisComplex popliteal cyst posterior to left knee measuring [id number] Shave biopsy Left total hip arthroplasty 01/28/2015 Allergies and Sensitivities: NKA Current Home Meds: (Last Updated 09/16 10:35) acetaminophen (Tylenol) bifidobacterium-lactobacillus (Probiotic Formula oral capsule) meloxicam (meloxicam 7.5 mg oral tablet) 7.5 mg PO Daily Initial Wt: 09/16 56.6 kg 125 lb Allergies Allergy/AdvReac Type Severity Reaction Status Date / Time No Known Allergies Allergy Verified 06/24/23 10:53 Home Medications Medication Instructions Recorded Confirmed Type acetaminophen 500 mg capsule 1,000 mg PO Q6H PRN Pain 06/04/23 06/24/23 History ascorbic acid (vitamin C) 500 mg 1,000 mg PO QAM 06/04/23 06/24/23 History tablet (Vitamin C) lactobacillus combination no.4 3 3,000 mmu cells PO HS 06/04/23 06/24/23 History billion cell capsule (Probiotic) meloxicam 7.5 mg tablet 15 mg PO QAM 06/04/23 06/24/23 History multivitamin 1 tab PO QAM 06/04/23 06/24/23 History meloxicam 7.5 mg tablet 15 mg (2 x 7.5 mg) PO QAM Post op 06/25/23 Rx pain and inflammation relief 30 days #60 tabs oxycodone 5 mg tablet 5 - 10 mg (1 - 2 x 5 mg) PO Q4H 06/25/23 Rx PRN Post op pain control #28 tabs Past Med/Surg History Problem List (Updated 09/17/23 @ 16:53 by Elvis Saldaña PA-C) Osteoarthritis of right hip S/P total hip arthroplasty Leg pain, right Positive CASA (antinuclear antibody) Per remote records Medical History Arthritis Surgical History Hx of colonoscopy Hx of bilateral cataract extraction Social History Smoking Status: Former smoker Second Hand Exposure: No; Do You Dip or Chew Tobacco: No; Hx Alcohol Use: No Hx Substance Use: No Preferred Language: New Zealander Communication Ability: Effective Data Compiler Required: No Beliefs That Will Affect Care: None Current Living Situation: Spouse Feels Safe at Home: Yes Assistive Devices: Cane and Walker Review of Systems All systems reviewed & are unremarkable except as noted in Subjective Physical Exam Physical Exam: Physical Exam: (relevant to the procedure, including heart and lung evaluation) General: Alert and oriented x 3 with proper grooming and hygiene Eyes: Pupils are equal and reactive to light with accommodation. Extraocular movements are intact Throat: Posterior oropharynx clear with absence of edema, erythema or exudate. Dentition is appropriate. Cardiac: Regular rate and rhythm with no murmurs or gallops appreciated Lungs: Clear to auscultation throughout with no wheezing, rales or rhonchi Abdomen: Nonobese, nondistended, nontender with normal active bowel sounds Extremities: Right hip; flexion is limited to 90 degrees, internal rotation to - 5 degrees and external rotation to 25 degrees. Straight leg raise test causes referred pain to the groin. Logroll test causes referred pain as well. Stinchfield test positive. Scour and impingement test are both positive. Patient experiences tenderness to palpation in the groin. Neuro: Cranial nerves II through XII are intact no motor or sensory deficit Skin: Normal in appearance with no open skin areas or discharge Results & Data Diagnostic Findings Studies (relevant to the procedure): X-rays in July show severe bone on bone arthritis of theright hip.
--- NOTE | 2023-09-29 15:20 | Anesthesiology Consultation ---
Date of Service September 29, 2023 Assessment & Plan (1) Encounter for pre-operative examination: - Infectious disease screening: Per assessment on 09/29/23: No known recent infectious disease contacts or current infectious disease symptoms. - Outpatient joint assessment: Pt currently scheduled for inpatient pathway. If surgeon requests review for outpatient joint pathway, patient is not recommended candidate for outpatient joint program from anesthesia standpoint based on available information. - S/P Left MICHELL (06/24/23): SAB at [facility]. No issues noted per post-op anesthesia progress note. - PCP visit (09/20/23): "She had her Left hip done in June 2023. Her laboratory studies were unremarkable. Her EKG however showed poor R wave progression, consider anterior NH versus lead placement versus LVH.. Her EKG did have changes but stress echo was negative.. She is to call sports med and see if she should have EKG or not since she had stress echo before last surgery. If so sports med should complete. Will complete addendum once we know if she needs EKG and CBC has resulted.. Addendum: pt cbc unremarkable. Mild anemia which may be residual from previous surgery and mildly elevated PLT which is most likely reactive. May proceed with surgery." Preop EKG not being updated per surgeon/PCP perspective. Chart Review Chart Review: Acceptable Risk for Surgery and Patient NOT seen in Pre Admission Testing History Surgery Operation Date: 10/07/23 10:50 Proposed Procedures p Right Total Hip Arthroplasty - Aramis Mullen MD Height/Weight Height: 5 ft 6 in Weight: 57.153 kg Allergies Allergy/AdvReac Type Severity Reaction Status Date / Time No Known Allergies Allergy Verified 09/29/23 10:05 Medications Home Medications Medication Instructions Recorded Confirmed Last Taken acetaminophen 500 mg capsule 1,000 mg PO Q6H PRN Pain 06/04/23 09/29/23 06/24/23 06:30 ascorbic acid (vitamin C) 500 mg 1,000 mg PO QAM 06/04/23 09/29/23 06/17/23 tablet (Vitamin C) multivitamin 1 tab PO QAM 06/04/23 09/29/23 06/17/23 meloxicam 7.5 mg tablet 15 mg (2 x 7.5 mg) PO QAM Post op 06/25/23 09/29/23 Unknown pain and inflammation relief 30 days #60 tabs Past Medical History Medical History Arthritis Chronic anemia Positive CASA (antinuclear antibody) per medical records Past Family History Family History Other No family history of adverse response to anesthesia Past Surgical History Surgical History Hx of bilateral cataract extraction Hx of colonoscopy S/P total left hip arthroplasty Social History Smoking Status: Former smoker Do You Dip or Chew Tobacco: No Smoking End Date: 1998 Hx Alcohol Use: No Hx Substance Use: No substance use type: does not use Testing Laboratory Results 09/20/23 WBC 10.27 H/H 11.9/37.0 PLATELETS 370 SODIUM 135 POTASSIUM 4.0 CHLORIDE 102 CO2 24 BUN 16 CREATININE 0.55 GLUCOSE 100 PT 13.7 INR 1.0 UA no bacteria Electrocardiogram Date: 06/08/23 SR at 68bpm. PACs. PRWP, consider anterior NH vs lead placement vs LVH. Compared to 06/20/1998, QRS axis shifted left per canary raiser comparison. Chest X-Ray Date: 06/08/23 FINDINGS: Cardiomediastinal and hilar silhouettes are within normal limits. No pneumothorax, pleural effusion or airspace consolidation. The bones appear grossly intact. Mild sigmoidal scoliosis of the spine. IMPRESSION: No acute process. Stress Test Date: 06/18/23 Type: DSE Negative pharmacologic stress ECG and echo for ischemia. 89% MPHR. EF 60-65%. Mild cLVH.
--- NOTE | 2023-10-07 11:45 | History & Physical Bridge Note ---
Date of Service October 07, 2023 History & Physical Bridge Note I have examined the patient, reviewed the History & Physical and in the interval since the performance of the History & Physical I have noted the following changes of clinical significance: no changes noted
[2023-10-07] MEDS: LR 500ML BOLUS, THEN 15ML/HR IV SCH (11:53)
[2023-10-07] MEDS: Scopolamine 1 MG TDSY TD SCH (11:54)
[2023-10-07] MEDS: LR 60ML/HR IV SCH (11:54)
[2023-10-07] MEDS: ACETAMINOPHEN 500 MG TAB PO SCH ×2 (11:55→22:12)
[2023-10-07] MEDS: CeleBREX 200 MG CAP PO SCH (11:55)
[2023-10-07] MEDS: dexAMETHasone**PF** 10 MG/ML VIAL IV SCH (11:55)
[2023-10-07] MEDS: FAMOTIDINE 20 MG TAB PO SCH (11:55)
[2023-10-07] MEDS: traMADol HCL 50 MG TABLET PO SCH (11:55)
[2023-10-07] MEDS ORDERED: ATROPINE SULFATE 0.1 MG/ML 10ML SYR IV PRN (13:26)
[2023-10-07] MEDS ORDERED: fentaNYL citrate PF 100 MCG/2 ML VIAL IV PRN (13:26)
[2023-10-07] MEDS ORDERED: ONDANSETRON INJ 2 MG/ML 2 ML VIAL IV PRN ×2 (13:26→16:15)
[2023-10-07] MEDS ORDERED: ePHEDrine sulfate 50 MG/ML AMP IV PRN (13:26)
[2023-10-07] MEDS ORDERED: fentaNYL citrate PF 100 MCG/2 ML VIAL ONE (13:35)
[2023-10-07] MEDS ORDERED: PROPOFOL IV EMULSION 10 MG/ML 20 ML VIAL IV ONE ×2 (13:35→14:30)
[2023-10-07] MEDS ORDERED: MIDAZOLAM HCL 1 MG/ML 2ML VIAL ONE (13:35)
[2023-10-07] MEDS: TRANEXAMIC ACID 1,000 MG **IV Pre-op IV SCH (13:53)
[2023-10-07] MEDS: ceFAZolin 2000MG 2,000 MG/15 ML SYR IV SCH ×2 (14:20→22:12)
[2023-10-07] MEDS ORDERED: METOPROLOL TARTRATE 1 MG/ML VIAL IV ONE (14:55)
[2023-10-07] MEDS ORDERED: ONDANSETRON INJ 2 MG/ML 2 ML VIAL ONE (14:55)
[2023-10-07] MEDS ORDERED: hydrALAZINE HCL 20 MG/ML VIAL ONE (15:10)
[2023-10-07] MEDS: ROPIVACAINE 0.5% HCL/PF 246 MG, Ketorolac (*for OR use only*) 30 MG, EPINEPHrine 30MG/3... INFIL SCH (15:44)
[2023-10-07] MEDS: TRANEXAMIC ACID 1,000 MG **IV Intra-op IV SCH (15:45)
--- NOTE | 2023-10-07 15:46 | Operative Report ---
Post Operative Report Pre & Post Diagnosis Operation Date: 10/07/23 13:20 Preoperative diagnosis: Right hip osteoarthritis. Postoperative diagnosis right hip osteoarthritis. I identified the patient and participated in the time-out.: Yes Procedure Operation Date: 10/07/23 13:20 Right total hip arthroplasty Surgeon Aramis Mullen MD Commercial Carpet Installer Shlomo Hammer DO, and CARLOS Saldaña PA-C. Estimated Blood Loss 100 Findings Consistent with Post-Op Diagnosis Fluids 1200 cc crystalloid Specimens right femoral head Anesthesia Type Spinal MAC Complications none Disposition Disposition: Recovery Room Indications 78-year-old female with right hip arthritis refractory to conservative management. She has previously undergone a left total hip arthroplasty by myself with a good result. She now desires to have the same procedure performed on her right hip. I had a long discussion with her about the risks and benefits of surgery, alternatives to surgery, and expected outcomes. After reviewing all these she elected proceed with surgery. All questions were answered. Informed consent was signed. Description of Procedure Patient was identified in the preoperative holding area where the surgical site, right hip, was marked. A spinal anesthetic was placed, then the patient was brought back to the main operating room, placed in the operating table and moved into the lateral decubitus position. Axillary roll was placed. All bony prominences were padded. Perioperative antibiotics and tranexamic acid 1 gram IV were administered. The operative extremity was prepped and draped in the normal sterile fashion. Prior to incision a multidisciplinary timeout was called. All in the room were in agreement. We began by making an incision for a posterior approach to the hip. We dissected down through subcutaneous tissues to the level of the fascia. The fascia was incised in line with the incision. Charnley bow was placed. Fatty tissue was reflected posteriorly off the back of the greater trochanter to expose the piriformis and short external rotators of the hip. Quadratus femoris was taken off the femur subperiosteally. The piriformis and short external rotators were dissected off the posterior aspect of the hip. A box cut was made in the capsule. Inferior hip capsule was released off the femur. The femoral head was dislocated. The femoral neck cut was made at our preoperative template. The acetabulum was then exposed. The labrum was sharply excised. Contents of the cotyloid fossa were removed with electrocautery. We then began reaming at a size 8 mm less than our preoperative template. We reamed up by 1 [address] the way up to a size 54 mm cup. This gave us good bleeding cancellus bone circumferentially. The acetabulum was then irrigated out and dried. The real Hooper Gription cup was then impacted down into position with 45 degrees of lateral opening and 25 degrees of anteversion. A single cancellous bone screw was placed up into the ilium. Excellent fixation was obtained. A trial liner for a 36 mm femoral head was then placed. Next we turned our attention to the femur. The lateral neck was removed with a box osteotome. Intramedullary guide was used to establish the intramedullary canal. We then broached all the way up to a size 2. We began trialing with a standard offset neck and a +5 head. Hip was reduced. Leg lengths were symmetric. The hip was stable in extension and external rotation, and stable in the sleeper position. At 90 degrees of hip flexion the hip could be internally rotated 70 degrees before levering out of the cup. I was very happy with the stability exam. Therefore the hip was dislocated and the femoral trial was removed. The acetabulum was re-exposed, and the trial liner was removed. Driscoll hole eliminator screw was placed. An Altrx polyethylene liner for a 36 mm femoral head was then impacted into the shell. The locking mechanism was checked to ensure that it had engaged which it had. The femur was re-exposed. The femoral canal was irrigated and dried. The real Actis femoral stem was opened up. This was impacted down into position. The femoral head was opened up and gently impacted down onto the trunnion. The hip was atraumatically reduced. Another 1 gram of IV tranexamic acid was started prior to closure. The wound was irrigated out with sterile Betadine solution. The periarticular injection cocktail was then placed. The short external rotators, piriformis, and posterior capsule were repaired through drill holes in the greater trochanter using #2 Vicryl. The fascia was run with a looped #1 PDS. The subcutaneous layer was closed with #1 PDS. The dermal layer was closed with 2-0 Vicryl. Zip line was used for the skin followed by a Silverlon dressing. A compressive dressing was then placed. The patient was then rolled supine. Leg lengths were rechecked and were symmetric. An abduction pillow was placed. Sedation was lifted and the patient was transferred to the recovery room in stable condition. Summary of implants: Depuy Hooper Gription Acetabular Shell Sector Cup, 54 mm outer diameter Hooper Cancellous bone screw, 6.5 x 54 mm Driscoll hole eliminator Hooper Altrx Polyethylene Acetabular Liner, Neutral, with a 36 mm inner diameter DePuy Actis collared cementless Femoral stem, 12/14 taper, size 2 standard offset 36 mm ceramic femoral head with +5 offset Postoperative course: Patient will be admitted overnight from the recovery room. Patient will be weightbearing as tolerated with posterior hip precautio ns. Aspirin for DVT prophylaxis I attest to the content of the Intraoperative Record and any orders documented therein. Any exceptions are noted below.
[2023-10-07] MEDS ORDERED: ALUMINUM/MAGNESIUM SUSP 30 ML UDC PO PRN (16:15)
[2023-10-07] MEDS ORDERED: diphenhydrAMINE 50 MG/ML VIAL IV PRN (16:15)
[2023-10-07] MEDS ORDERED: METOCLOPRAMIDE HCL INJ 5 MG/ML 2 ML VIAL IV PRN (16:15)
[2023-10-07] MEDS ORDERED: MAGNESIUM HYDROXIDE SUSP 30 ML UDC PO PRN (16:15)
[2023-10-07] MEDS ORDERED: NALOXONE HCL 0.4 MG/1 ML VIAL/CARP IV PRN (16:15)
[2023-10-07] MEDS ORDERED: oxyCODONE HCL IR 5 MG TAB (IMMEDIATE RELEASE) PO PRN (16:15)
[2023-10-07] MEDS ORDERED: bisacodyL 10 MG SUPP PR PRN (16:15)
[2023-10-07] MEDS ORDERED: traMADol HCL 50 MG TABLET PO PRN (16:15)
--- NOTE | 2023-10-07 16:15 | Operative Report ---
Post Operative Report Pre & Post Diagnosis Operation Date: 10/07/23 13:20 Pre-Op Diagnosis: Right Hip Osteoarthritis Post-Op Diagnosis: Right Hip Osteoarthritis I identified the patient and participated in the time-out.: Yes Procedure Operation Date: 10/07/23 13:20 Actual Procedures p Right Total Hip Arthroplasty(Right) - Aramis Mullen MD Surgeon Aramis Mullen MD Reservoir Engineering Manager Shlomo Hammer DO, and CARLOS Saldaña PA-C. Estimated Blood Loss 100 Findings Consistent with Post-Op Diagnosis Specimens femoral head Description of Procedure I was present during the entire case assisting with positioning, prepping, draping, wound retraction, wound closure, dressing and abduction pillow placement. Fellow also present. I served as an extra set of hands during the case. Please see Dr. Mullen procedure note for specifics of the case. I attest to the content of the Intraoperative Record and any orders documented therein. Any exceptions are noted below.
--- NOTE | 2023-10-07 16:17 | Operative Report ---
Post Operative Report Pre & Post Diagnosis Operation Date: 10/07/23 13:20 Pre-Op Diagnosis: Right Hip Osteoarthritis Post-Op Diagnosis: Right Hip Osteoarthritis I identified the patient and participated in the time-out.: Yes Procedure Operation Date: 10/07/23 13:20 Actual Procedures p Right Total Hip Arthroplasty(Right) - Aramis Mullen MD Surgeon Aramis Mullen MD Prepared Foods Production Team Member Shlomo Hammer DO, and CARLOS Saldaña PA-C. Estimated Blood Loss 100 Findings Consistent with Post-Op Diagnosis Specimens Right femoral head Description of Procedure Patient was brought to the operative suite, she underwent sedation per anesthesia. She was placed in left lateral decubitus position. Right lower extremity was prepped and draped in usual sterile fashion. Patient underwent a right total hip arthroplasty, please see Dr. Mullen's operative report for full details. I was present throughout the case and assisted with surgical exposure, bone preparation, hardware placement, wound closure, and dressing application. Patient was awoken and taken to recovery in stable condition. I attest to the content of the Intraoperative Record and any orders documented therein. Any exceptions are noted below.
--- NOTE | 2023-10-07 16:35 | Anesthesiology Progress Note ---
Date of Service October 07, 2023 Anesthesia Post Procedure Vital Signs Vital Signs: Temp Pulse Resp BP Pulse Ox O2 Del Method 10/07/23 11:35 36.8 C 78 20 173/80 H 98 Room Air Transfer of Care Handoff Completed per policy Notes Mental Status: alert / awake / arousable and participated in evaluation Patient Amnestic to Procedure: Yes Nausea / Vomiting: adequately controlled Pain: adequately controlled Airway Patency, RR, SpO2: stable & adequate BP & HR: stable & adequate Hydration State: stable & adequate Neuraxial Anesthesia: was administered and sensory block is resolving Anesthetic Complications: no major complications apparent and Pt Satisfied with anesthetic care
--- OUTSIDE RECORDS SUMMARY | 2023-10-07 16:51 | External Medical Summary | Continuity of Care Document ---
Author Name Unknown Organization [facility] [address] Address [address] [place], [place] [id number] Care Team Providers Care Fructose Loader Name Role Phone Rosalva Tucker Primary Care Physician [phone] Encounter [id number] Date(s): 09/21/23 - 09/21/23 [facility] [address] [facility] [address], [facility] [address] [place], [place] [phone] Encounter Diagnosis Unilateral primary osteoarthritis, right hip(Final) - Encounter for other preprocedural examination(Final) - Discharge Disposition: Home or Self Care Attending Physician: HERBERT Saldaña Dennis Referring Physician: HERBERT Saldaña Dennis Allergies, Adverse Reactions, Alerts No Known Allergies Immunizations Given and Recorded Vaccine Date Status Refusal Reason influenza virus vaccine, inactivated 12/02/22 Give n influenza virus vaccine, inactivated 11/04/20 Give n SARS-CoV-2 mRNA (tozinameran 5y-11y) 12/16/21 Lawrence rded SARS-CoV-2 (COVID-19) mRNA BNT-162b2 vax 11/13/20 Given pneumococcal 13-valent vaccine 11/18/16 Recorded zoster vaccine live 09/04/11 Recorded Medications meloxicam 7.5 mg oral tablet Start: 09/17/23 10:35:00 AM EDT, 1 tab, PO, Daily Start Date: 09/17/23 Status: Ordered Probiotic Formula oral capsule Start: 06/11/23 1:13:00 PM EDT Start Date: 06/11/23 Status: Ordered Tylenol Start: 06/08/23 12:40:00 PM EDT Start Date: 06/08/23 Status: Ordered Problem List Condition Confirmation Course Effective Dates Status [facility] Informant Actinic keratoses Confirmed Active Other meniscus derangements, posterior horn of lateral meniscus, left knee Confirmed Active Bilateral hip pain Confirmed Active History of actinic keratosis Confirmed Active History of Lyme disease Confirmed Active S/P total left hip arthroplasty Confirmed Active Cyst of left knee joint [...] popliteal cyst posterior to left knee measuring [id number] Results Laboratory List Name Date Urine Analysis, Microscopic Only (URINE MICROSCOPIC) 09/21/23 Most recent to oldest [Reference Range]: 1 Bact (u) [NONE-NONE] NONE *Unknown* (09/21/23 10:10 AM) RBC (u) [0-4 /HPF] 0-4 /HPF 1 (09/21/23 10:10 AM) WBC (u) [0-4 /HPF] 0-4 /HPF (09/21/23 10:10 AM) 1Result Comment: Testing Performed By: Dept of Pathology [facility] [address], [address] [place] [address] Orders for Microbiology Reports Name Date Urine Culture (CULTURE, URINE) 09/21/23 Microbiology Reports TEST:Urine.Cx STATUS:Auth (Verified) BODY SITE: SOURCE:Urine COLLECTED DATE/TIME:09/21/23 10:10 AM Culture <10 [employer]/ML UROGENITAL VESNA Social History Social History Type Response Smoking Status Never smoked cigaret ronald Sex Female Sex Representation Female (finding) Patient Care team information Care Team Personnel Name: FILOMENA Tucker Tara Position: Nurse Pract - Family Med Member Role: Primary Care Provider [address]: [address] [place] [id number] Care Team Related Persons Name: THEA ELIZABETH
--- OUTSIDE RECORDS SUMMARY | 2023-10-07 16:51 | External Medical Summary | Continuity of Care Document ---
Author Name Unknown Organization [address] [id number] Care Team Providers Care Tread Tuber Machine Operator Name Role Phone Rosalva Tucker Primary Care Physician [phone] Encounter [facility] [id number] Date(s): 09/20/23 - 09/20/[address] [address] [phone] Encounter Diagnosis Pre-op exam(Discharge Diagnosis) - 09/20/23 Body mass index [BMI] 20.0-20.9, adult(Discharge Diagnosis) - 09/20/23 Discharge Disposition: Home or Self Care Attending Physician: FILOMENA Tucker Tara Allergies, Adverse Reactions, Alerts No Known Allergies Assessment and Plan Extracted from: Title:pre op Author:FILOMENA Tucker Tara Date:01/31 1.Pre-op exam Acute/Chronic: chronic Goal:Resolution/ control Status:stable/controlled Data: records/pt report Plan: Had surgery on 07/06 for left hip replacement. Anesthesia at [facility] said as per sport med anesthesia consult not needed since within 3 mo. Her labs and cxr from last surgery were unremarkable/nl.Her ekg didhave changes but stress echo was negative. CMP, PT/PTT unremarkable. CBC pending. She is to call sports med and see if she should have ekg ornot since she had stress echo before last surgery. If so sports med should complete. Will complete addendum once we know if she needs ekgand cbc hasresulted. time spent reviewing chart, face to face visit, ordersand documentation: 36 min Immunizations Given and Recorded Vaccine Date Status Refusal Reason influenza virus vaccine, inactivated 12/02/22 Give n influenza virus vaccine, inactivated 11/04/20 Give n SARS-CoV-2 mRNA (josepheran 5y-11y) 12/16/21 Lawrence rded SARS-CoV-2 (COVID-19) mRNA [...] PM EDT Start Date: 06/08/23 Status: Ordered Mental Status 09/20/23 Barriers to Learning one year None evide nt Mandatory Health Literacy Documentation Yes Health Literacy Communication Barriers N ever Primary Language Yakut Problem List Condition Confirmation Course Effective Dates [...] Dates Health Status Cl inical Service Informant Body mass index [BMI] 20.0-20.9, adult Discharge Diagnosis 09/20/23 Non-Specified Pre-op exam Discharge Diagnosis 09/20/23 Non-Specified Procedures Procedure Date Related Diagnosis Body Site Status Ultrasound scan-Abdomen 1 09/14/17 Completed Procedure 2 02/04/17 Completed Shave biopsy 01/28/15 Completed colonoscopy more 10 years ago Completed 1Unremarkable abdominal US 2Venous dopplar lower extremity unilat Study is negative for deep venous thrombosis Complex popliteal cyst posterior to left knee measuring [id number] Vital Signs Most recent to oldest [Reference Range]: 1 Height 168.5 cm (09/20/23 2:43 PM) Patient Weight 57.7 kg (09/20/23 2:43 PM) Body Mass Index 20.32 kg/m2 (09/20/23 2:43 PM) Temperature [36.5-37.9 DegC] 36.8 DegC (09/20/23 2:43 PM) Heart Rate 77 bpm (09/20/23 2:43 PM) Respiratory Rate 18 br/min (09/20/23 2:43 PM) Blood Pressure 144/78mmHg (09/20/23 2:43 PM) Cuff Pulse Pressure 66 mmHg (09/20/23 2:43 PM) Social History Social History Type Response Smoking Status Never smoked cigaret ronald Sex Female Sex Representation Female (finding) FCM Outpt Note * FILOMENA Tucker Tara: PERFORM Event Display: FCM Outpt Note Authored Date: [id number] Chief Complaint pre-op: RT hip surgery on 10/07/23. Pt denies any issues. History of Present Illness Having right hip arthroplasty on 10/07/[address] Mullen. She did well after left hip replacement. She had left hip done in June 2023. Her laboratory studies were unremarkable. Her EKG however showedpoor R wave progression, consider anterior CO versus lead placement versus LVH. RepeatEKG in the office todaypossible left atrial enlargement and also possible septal infarct of undetermined age. She was asymptomatic. A stress echo was done that showedNegative pharmacologic stress ECG and echocardiogram and EKG for ischemiaat 89% MPHR.Tolerated Dobutamine protocol well, no adverse effects. Denies chest pain or dyspnea.Patient's chest x-ray was negative.Previous smoker quit at age 51. She had 30 pack years No etoh or illicit drugs. No Claudication No Chest pain No SOB 2 [address] of steps Personal hx of anesthesia complicationsshe has never had general anesthesia No Family hx of anesthesia complications No Personal of hx of VTE, bleeding dyscrasia No Family hx of VTE, bleeding dyscrasia Dad at age 56 from CO 1. Do you snore loudly (louder than [...] pain, palpitations, syncope, edema, cyanosis, claudication, orthopnea. GI: No nausea, vomiting, diarrhea, melena, hematochezia, change in appetite, abdominal pain, changein bowel habits or stools Musculoskeletal: No joint swelling or pain, muscle pain, back pain Neurologic: No headache, lightheadedness, dizziness Psychiatric: No depression, anxiety, Endocrine: No weight change, heat or cold intolerance, tremor, insomnia, polyuria, polydipsia, polyphagia, abnormal hair growth, change in nails Physical Exam Vitals & Measurements T:36.8C HR:77(Monitored) RR:18 BP:144/78 SpO2:98% HT:168.5cm WT:57.700kg(Dosing) WT:57.7kg BMI:20.32 PHQ2 Data(Data Documented on:09/20/2023 14:43) Emotional health assessment NEGATIVE head- normocephalic neck-no lymphadenopathy, masses, or thyromegaly, +carotid pulses, no bruits, trachea midline Pulmonary- chest expansion symmetric, CTA (clear to auscultation), eupnea, no adventitious sounds (rales, crackles, wheezes) CV (cardiovascular)- RRR no m/r/g (systolic ejection murmur, rubs, gallops), good peripheral perfusion extremitiesNo edema or erythema. pulses present skin-good turgor w/o lesions, redness, cyanosis, edema nails- no clubbing or deformities w good cap refill Neuro:Alert, Oriented, Psy:no homicidal or suicidal ideations. Assessment/Plan 1.Pre-op exam Acute/Chronic: chronic Goal:Resolution/ control Status:stable/controlled Data: records/pt report Plan:Had surgery on 07/06 for left hip replacement. Anesthesia at [facility] said as per sport med anesthesia consult not needed since within 3 mo. Her labs and cxr from last surgery were unremarkable/nl.Her ekg didhave changes but stress echo was negative. CMP, PT/PTT unremarkable. CBC pending. Sheis to call sports med and see if she should have ekg ornot since she had stress echo before last surgery. If so sports med should complete. Will complete addendum once we know if she needs ekgandcbc hasresulted. time spent reviewing chart, face to face visit, ordersand documentation: 36 min Problem List/Past Medical History Ongoing Actinic keratoses Bilateral hip pain Cyst of left knee joint Hallux rigidus, right foot History of actinic keratosis History of Lyme disease Milia Neoplasm of uncertain behavior of skin Osteoporosis Other meniscus derangements, posterior horn of lateral meniscus, left knee S/P total left hip arthroplasty Synovial cyst of popliteal space [Wilson], left knee Resolved Osteoarthritis of right foot Procedure/Surgical History Ultrasound scan-Abdomen| Service Date: 09/14/2017Procedure| Service Date: 02/04/2017Shave biopsy| Service Date: 01/28/2015colonoscopy more 10 years ago Medications acetaminophen(Tylenol) bifidobacterium-lactobacillus(Probiotic Formula oral capsule) meloxicam(meloxicam 7.5 mg oral tablet), 7.5 mg= 1 tab, PO, Daily Allergies NKA Social History Smoking Status Never smoked cigarettes Family History Heart attack: Father. High Blood Pressure: Father. Health Status Family Member(s) Immunizations Vaccine Date Status influenza virus vaccine, inactivated 12/02/2022 Given SARS-CoV-2 mRNA (tozinameran 5y-11y) 12/16/2021 Recorded SARS-CoV-2 (COVID-19) mRNA BNT-162b2 vax 11/13/2020 Given influenza virus vaccine, inactivated 11/04/2020 Given pneumococcal 13-valent vaccine 11/18/2016 Recorded zoster vaccine live 09/04/2011 Recorded Recommendations Health Maintenance Pending(in the next year) OverDue Adult Influenza Vaccine due08/08/23and every 1year Due Adult COVID-19 Vaccination due09/20/23Unknown Frequency Adult Social Determinants of Health Screening due09/20/23Unknown Frequency Adult Tdap/Td Vaccine due09/20/23Unknown Frequency Medicare Annual Wellness Visit due09/20/23and every 1year Pneumococcal Vaccine Older Adults due09/20/23One-time only Shingles Vaccine due09/20/23One-time only Satisfied(in the past 1 year) Satisfied Adult Influenza Vaccine on12/02/22.Satisfied by ANABELLE Castañeda Bobbi Body Mass Index on09/20/23.Satisfied by ANABELLE Gray Natalie Electronic Signature on File Electronically Reviewed/Signed by: FILOMENA Houston Author Signature Dt/Tm:09/20/2023 04:05 PM Department of Family Medicine TB Patient Care team information Care Team Personnel Name: FILOMENA Tucker Tara Position: Nurse Pract - Family Med Member Role: Primary Care Provider Address: [address] [place] [id number] [place] Care Team Related Persons Name: THEA ELIZABETH"
--- OUTSIDE RECORDS SUMMARY | 2023-10-07 16:51 | External Medical Summary | Continuity of Care Document ---
Author Name Unknown Organization [place] [id number] Address [address] [place] [id number] Care Team Providers Care Clip Loading Machine Adjuster Name Role Phone Rosalva Tucker Primary Care Physician [phone] Encounter [facility] [id number] Date(s): 09/17/23 - 09/17/23 [facility] [address] [employer] [place] [id number] [address] [place] [id number] Encounter Diagnosis Arthritis of right hip(Discharge Diagnosis) - 09/17/23 Preop examination(Discharge Diagnosis) - 09/17/23 Discharge Disposition: Home or Self Care Attending Physician: MD Mullen Paul K Allergies, Adverse Reactions, Alerts No Known Allergies Assessment and Plan Extracted from: Title:Aramis Mullen Author:MisascencionLimehreen Date:09/17/23 Impression:78 yearold Female right hip arthritis Plan: - Discussed risks and benefits of right MICHELL with the patient. - Cease usage of Meloxicam 10 days prior to right MICHELL. - Follow up for H&P before right MICHELL. Immunizations Given and Recorded Vaccine Date Status [...] Start Date: 06/08/23 Status: Ordered Mental Status 09/17/23 Barriers to Learning one year None evide nt Mandatory Health Literacy Documentation Yes Health Literacy Communication Barriers N ever Primary Language Albanian Problem List Condition Confirmation Course Effective Dates [...] Effective Dates Health Status Clinical Service Informant Arthritis of right hip Discharge Diagnosis 09/17/23 Preop examination Discharge Diagnosis 09/17/23 Procedures Procedure Date Related Diagnosis Body Site Status Ultrasound scan-Abdomen 1 09/14/17 Completed Procedure 2 02/04/17 Completed Shave biopsy 01/28/15 Completed colonoscopy more 10 years ago Completed 1Unremarkable abdominal US 2Venous dopplar lower extremity unilat Study is negative for deep venous thrombosis Complex popliteal cyst posterior to left knee measuring [id number] Vital Signs Most recent to oldest [Reference Range]: 1 Height 168.0 cm (09/17/23 10:36 AM) Patient Weight 56.6 kg (09/17/23 10:36 AM) Body Mass Index 20.05 kg/m2 (09/17/23 10:36 AM) Temperature [36.5-37.9 DegC] 36.4 DegC *LOW* (09/17/23 10:36 AM) Respiratory Rate 20 br/min (09/17/23 10:36 AM) Blood Pressure 144/82mmHg (09/17/23 10:36 AM) Cuff Pulse Pressure 62 mmHg (09/17/23 10:36 AM) Social History Social History Type Response Smoking Status Never smoked cigaret ronald Sex Female Sex Representation Female (finding) Ortho Outpt Note * Aslam, Abdullah: MODIFY, MODIFY, MODIFY, MODIFY, MODIFY, MODIFY, PERFORM, MODIFY, MODIFY, MODIFY Event Display: Ortho Outpt Note Authored Date: [id number] Primary Care Provider FILOMENA Tucker Tara Chief Complaint F/u s/p left MICHELL DOS: 06/24/2023 History of Present Illness Theron Cast presents today forthe above. She reports less pain in her left hip after her procedure.She used Aspirin and Meloxicam for pain relief after surgery, but she now uses Meloxicam and Tylenol.She reports no painsitting or laying but experiencespain during ambulation. She is scheduled for right MICHELL in October 06. Review of Systems Refer to the HPI. Physical Exam Focusing on the patient'sleft lower extremity: Sensation intact to light touch L3 to S1 dermatomes No skin lesions Diagnostic Results X-rays in July show severe bone on bone arthritis of theright hip. Assessment/Plan Impression:78 yearoldFemale right hip arthritis Plan: - Discussed risks and benefits of right MICHELL with the patient. - Cease usage of Meloxicam 10 days prior to right MICHELL. - Follow up for H&P before right MICHELL. Attestation I, Swathi Melton, have scribed for, and in the presence of, Aramis Mullen, on this date,09/17/2023 10:09:04. Problem List/Past Medical History Ongoing Actinic keratoses [...] due08/08/23and every 1year Due Adult COVID-19 Vaccination due09/17/23Unknown Frequency Adult Social Determinants of Health Screening due09/17/23Unknown Frequency Adult Tdap/Td Vaccine due09/17/23Unknown Frequency Medicare Annual Wellness Visit due09/17/23and every 1year Pneumococcal Vaccine Older Adults due09/17/23One-time only Shingles Vaccine due09/17/23One-time only Due In Future Body Mass Index not due until06/11/24and every 366day Satisfied(in the past 1 year) Satisfied Adult Influenza Vaccine on12/02/22.Satisfied by ANABELLE Castañeda Bobbi Body Mass Index on06/11/23.Satisfied by ANABELLE Castañeda Bobbi Electronic Signature on File Electronically Reviewed/Signed by: Swathi Melton Author Signature Dt/Tm:09/17/2023 11:03 AM Electronically Reviewed/Signed by: Aramis Mullen MD Cosigner Signature Dt/Tm: 09/17/2023 12:35PM Division of Sports Medicine AA Patient Care team information Care Team Personnel Name: FILOMENA Tucker Tara Position: Nurse Pract - Family Med Member Role: Primary Care Provider Address: [address] [place] [id number] [place] Care Team Related Persons Name: THEA ELIZABETH"
--- OUTSIDE RECORDS SUMMARY | 2023-10-07 16:51 | External Medical Summary | Continuity of Care Document ---
Author Name Unknown Organization [facility] [address] Address [address], [place] [id number] Care Team Providers Care Hot Tar Roofer Name Role Phone Rosalva Tucker Primary Care Physician [phone] [facility]counter [facility] [id number] Date(s): 09/20/23 - 09/20/23 [facility] [address] [facility] [address] [place], [facility] [address] [place], [place] [phone] Encounter Diagnosis Unilateral primary osteoarthritis, right hip(Final) [...] List Condition Confirmation Course Effective Dates Status [facility] atus Informant Actinic keratoses Confirmed Active Other [...] popliteal cyst posterior to left knee measuring [id number] Results Laboratory List Name Date Complete Blood Count w Differential (CBC ,DIFFH) 09/20/23 Comprehensive Metabolic Panel (COMP META B PANEL) 09/20/23 Prothrombin Time w/ INR (PROTIME WITH IN R) 09/20/23 Request to FAX Report (First Location) ( ACC NO TO BE FAXED) 09/20/23 Urine Analysis, Microscopic Only (URINE MICROSCOPIC) 09/20/23 Most recent to oldest [Reference Range]: 1 eGFR CKD-EPI [>60 mL/min/1.73 m2] >90 mL /min/1.73 m2 1 (09/20/23 10:27 AM) Estimated CrCl 76.54 mL/min (09/20/23 11:42 AM) Phone No [phone] (09/20/23 10:27 AM) Faxed on: 09/21/23 09:22 (09/20/23 10:27 AM) MPV [9.0-12.2 fL] 8.9 fL *LOW* (09/20/23 10:27 AM) Immature Gran% 0.7 % (09/20/23 10:27 AM) Neut% 72.4 % (09/20/23 10:27 AM) Lymph% 16.1 % (09/20/23 10:27 AM) Grayson% 7.3 % (09/20/23 10:27 AM) Baso% 0.5 % (09/20/23 10:27 AM) Eos% 3.0 % (09/20/23 10:27 AM) Immat Gran, Abs [0-0.4 K/uL] 0.07 K/uL (09/20/23 10:27 AM) Neut, Abs [2.0-7.7 K/uL] 7.44 K/uL (09/20/23 10: AM) Lymph, Abs [1.0-3.4 K/uL] 1.65 K/uL (09/20/23 10:27 AM) Grayson, Abs [0-1.0 K/uL] 0.75 K/uL (09/20/23 10: AM) Baso, Abs [0-0.1 K/uL] 0.05 K/uL (09/20/23 10:27 AM) Eos, Abs [0-0.5 K/uL] 0.31 K/uL (09/20/23 10: AM) Type of Diff: AUTO *Unknown* (09/20/23: AM) RDW [11.5-14.2 %] 13.8 % (09/20/23 10: AM) Anion Gap [5-14 mmol/L] 9 mmol/L (09/20/23 10:27 AM) Alb [3.5-5.0 g/dL] 4.1 g/dL (09/20/23 10: AM) Alk Phos [38-126 unit/L] 92 unit/L (09/20/23: AM) ALT [<35 unit/L] 15 unit/L (09/20/23 10: AM) AST [15-46 unit/L] 29 unit/L (09/20/23: AM) Bact (u) [NONE-NONE] COULD NOT VOID *Unknown* (09/20/23: AM) BUN [7-20 mg/dL] 16 mg/dL (09/20/23 10:27 AM) Ca [8.4-10.2 mg/dL] 9.4 mg/dL (09/20/23 10: AM) Cl- [96-107 mmol/L] 102 mmol/L (09/20/23 10: AM) HCO3 [22-30 mmol/L] 24 mmol/L (09/20/23 10: AM) Cret [0.60-1.00 mg/dL] 0.55 mg/dL *LOW* (09/20/23 10: AM) Glu [74-106 mg/dL] 100 mg/dL (09/20/23 10: AM) Hct [35-44 %] 37.0 % (09/20/23 10: AM) Hgb [11.7-15.0 g/dL] 11.5 g/dL *LOW* (09/20/23: AM) INR [0.9-1.1] 1.0 3 (09/20/23: AM) K [3.5-5.1 mmol/L] 4.0 mmol/L (09/20/23 10: AM) MCH [28-33 pg] 28.0 pg (09/20/23: AM) MCHC [32-36 g/dL] 31.1 g/dL *LOW* (09/20/23 10: AM) MCV [81-96 fL] 90.0 fL (09/20/23 10: AM) Na [137-145 mmol/L] 135 mmol/L *LOW* (09/20/23 10: AM) Plts [150-350 K/uL] 370 K/uL *HI* (09/20/23: AM) PT [12.0-14.2 seconds] 13.7 seconds (09/20/23: AM) RBC [3.90-5.00 M/uL] 4.11 M/uL (09/20/23 10: AM) T Bili [0.2-1.3 mg/dL] 0.4 mg/dL (09/20/23 10: AM) Prot [6.3-8.2 g/dL] 8.1 g/dL (09/20/23 10: AM) RBC (u) [0-4 /HPF] COULD NOT VOID /HPF (09/20/23 10: AM) WBC (u) [0-4 /HPF] COULD NOT VOID /HPF (09/20/23 10: AM) WBC [4.0-10.4 K/uL] 10.27 K/uL (09/20/23 10: AM) 1Result Comment: Testing Performed By: Dept of Pathology [facility] [address], [address] [place] [address] 2Result Comment: Testing Performed By: Dept of Pathology [facility], [address] [place] [address] 3Result Comment: Suggested therapeutic range for low-intensity Coumadin therapy for venous thromboembolism is INR 2.0-3.0 (ex: atrial fibrillation, history of TIA/stroke). For high risk patients, the suggested therapeutic range is INR 2.5-3.5 (ex: mechanical prosthetic valves). Testing Performed By: Dept of Pathology [facility], [address] [place] [address] Orders for Microbiology Reports Name Date Urine Culture (CULTURE, URINE) 09/20/23 Microbiology Reports TEST:Urine.Cx STATUS:Auth (Verified) BODY SITE: SOURCE:Urine COLLECTED DATE/TIME:09/20/23 10:27 AM Culture REQUEST CREDITED PATIENT UNABLE TO VOID Social History Social History Type Response Smoking Status Never smoked cigaret ronald Sex Female Sex Representation Female (finding) Patient Care team information Care Team Personnel Name: FILOMENA Tucker Tara Position: Nurse Pract - Family Med Member Role: Primary Care Provider Address: [address] [place] [address], [place] [address] [place] Care Team Related Persons Name: THEA ELIZABETH
--- OUTSIDE RECORDS SUMMARY | 2023-10-07 16:52 | External Medical Summary | Continuity of Care Document ---
Author Name Unknown Organization [place] [id number] Address [address] [place] [id number] Care Team Providers Care Supply Chain Consultant Name Role Phone Lydiajosé Rosalva Primary Care Physician [phone] Encounter [facility] [id number] Date(s): 08/04/23 - 08/04/23 [facility] [address] [facility] [address] [facility] [address] [place] [address] Encounter Diagnosis S/P total left hip arthroplasty(Discharge Diagnosis) - 08/04/23 Discharge Disposition: Home or Self Care Attending Physician: HERBERT Hall, Nora Cordon Allergies, Adverse Reactions, Alerts No Known Allergies Immunizations Given and Recorded Vaccine Date Status Refusal Reason influenza virus vaccine, inactivated 12/02/22 Give n influenza virus vaccine, inactivated 11/04/20 Give n SARS-CoV-2 mRNA (tozinameran 5y-11y) 12/16/21 Lawrence rded SARS-CoV-2 (COVID-19) mRNA BNT-162b2 vax 11/13/20 Given pneumococcal 13-valent vaccine 11/18/16 Recorded zoster vaccine live 09/04/11 Recorded Medications Probiotic Formula oral capsule Start: 06/11/23 1:13:00 PM EDT Start Date: 06/11/23 Status: Ordered Tylenol Start: 06/08/23 12:40:00 PM EDT Start Date: 06/08/23 Status: Ordered Mental Status 08/04/23 Barriers to Learning one year None evide nt Mandatory Health Literacy Documentation Yes Health Literacy Communication Barriers N ever Primary Language Belarusian Problem List Condition Confirmation Course Effective Dates [...] Effective Dates Health Status Clinical Service Informant S/P total left hip arthroplasty Discharge Diagnosis 08/04/23 Procedures Procedure Date Related Diagnosis Body Site Status Ultrasound scan-Abdomen 1 09/14/17 Completed Procedure 2 02/04/17 Completed Shave biopsy 01/28/15 Completed colonoscopy more 10 years ago Completed 1Unremarkable abdominal US 2Venous dopplar lower extremity unilat Study is negative for deep venous thrombosis Complex popliteal cyst posterior to left knee measuring [id number] Social History Social History Type Response Smoking Status Former Smoker, quit > 1 yr Sex Female Patient Care team information Care Team Personnel Name: FILOMENA Tucker Tara Position: Nurse Pract - Family Med Member Role: Primary Care Provider Address: Address: [address] [place] [address], [place] [address] [place] Care Team Related Persons Name: THEA ELIZABETH Address: home [address] [facility] [place] [id number]
--- NOTE | 2023-10-07 16:53 | XRay Report ---
XR pelvis 1-2V routine CLINICAL HISTORY: Postoperative evaluation. COMPARISON: Pelvis radiograph August 04, 2023. FINDINGS: Alignment of the total right hip arthroplasty is anatomic. There is no periprosthetic frac ture or unexpected radiopaque foreign body. Left hip arthroplasty is also intact. IMPRESSION: Expected findings following right hip arthroplasty. ACT 112: Negative or not required by law. Electronically signed by: Norberto Clemente M.D. 10/07/2023 4:51 PM
[2023-10-07] MEDS: ORTHO JOINT ANESTHETIC ONE (18:45)
[2023-10-07] MEDS: Scopolamine CHECK PATCH PLACEMENT SCH (18:49)
[2023-10-07] MEDS: SODIUM CHLORIDE 0.9% 1,000 ML IV SCH (18:50)
[2023-10-07] MEDS: KETOROLAC TROMETHAMINE 15 MG/ML VIAL IV SCH (20:22)
[2023-10-07] MEDS: ASPIRIN 81 MG ECTAB PO SCH (21:04)
[2023-10-07] MEDS: SENNA 8.6 MG TAB PO SCH (21:04)
[2023-10-07] MEDS: DOCUSATE SODIUM 100 MG CAP PO SCH (21:04)
[2023-10-08] MEDS: dexAMETHasone 4 MG TAB PO SCH (08:06)
[2023-10-08] MEDS: MULTIVITAMIN TAB PO SCH (08:06)
[2023-10-08] MEDS: ASCORBIC ACID 500 MG TAB PO SCH (08:06)
[2023-10-08 08:09] LABS: Basophils # (auto) 0.02 K/uL (0.00-0.20); Basophils % (auto) 0.2 %; Hematocrit (blood only) 27.6 % (37.0-47.0); Hemoglobin 9.1 g/dl (12.0-16.0); Immature Granulocytes # (auto) 0.04 K/uL (0.01-0.20); Immature Granulocytes % (auto) 0.4 %; Lymphocytes # (auto) 0.95 K/uL (1.20-3.40); Lymphocytes % (auto) 9.1 %; Mean Corpuscular Hemoglobin 27.8 pg (25.0-34.0); Mean Corpuscular Volume 84.4 fL (80.0-100.0); Mean Platelet Volume 8.9 fL (9.4-12.4); Monocytes # (auto) 0.74 K/uL (0.11-0.59); Monocytes % (auto) 7.1 %; Neutrophils # (auto) 8.74 K/uL (1.40-6.50); Neutrophils % (auto) 83.2 %; Platelet Count 244 K/uL (130-400); RDW Coefficient of Variation 14.5 % (11.5-14.5); RDW Standard Deviation 44.6 fL (36.4-46.3); Red Blood Count 3.27 M/uL (4.20-5.40); White Blood Count 10.49 K/ul (4.8-10.8)
[2023-10-08 08:18] VITALS: BP 117/56; PULSE 49; RESP 18; TEMP 98.1; O2SAT 97
[2023-10-08] MEDS ORDERED: NON-FORMULARY MEDICATION (Multivitamin Tablet) PO SCH (09:00)
--- NOTE | 2023-10-08 09:40 | Orthopedic Progress Note ---
Date of Service October 08, 2023 Assessment & Plan (1) S/P total hip arthroplasty: Plan: Weightbearing as tolerated with walker assistance PT/OT Total hip precautions were reviewed Pain control with p.o. medication Ice with easy wrap Keep Silverlon dressing in place Abduction pillow use x 6 weeks DVT prophylaxis with aspirin and ARETHA stockings Plan is to discharge home today with a known physical therapy for the first 2 weeks Follow-up at [facility] orthopedics as previously scheduled With questions contact our clinic at [phone] Admission and Anticipated Discharge Date Admission Date: October 07, 2023 Subjective This 78-year-old female is day 1 status post right total hip arthroplasty. Patient states she is doing very well. She states that her pain is well- controlled with p.o. pain medication she is receiving. She states she has been able to transition from her bed to the bedside chair without difficulty. Currently she denies chest pain, shortness of breath, fever, chills, sweats, numbness or tingling in her right lower extremity. She also denies nausea, vomiting, diarrhea or difficulty voiding. Review of Systems Review of Systems: All systems reviewed & are unremarkable except as noted in Subjective Physical Exam Physical Exam: Right hip: Outer dressing was removed. Silverlon is clean dry and intact and left in place. Patient is able to perform an active straight leg raise test. She is able to actively dorsi and plantarflex her foot without issue. She is able to detect light sensation to touch over the pads of all digits. She el icits no pain with light passive hip flexion near 90 degrees. She does have a slight pulling sensation with light passive internal rotation but no discomfort with external rotation. She is neurovascularly intact in the right lower extremity. Her quad strength is 4 out of 5. Results & Data Vital Signs (Past 12 Hours) Vital Signs Temp Pulse Pulse Resp BP Pulse Ox O2 Del Method 10/08/23 08:16 36.7 C 49 L 18 117/56 L 97 Room Air 10/08/23 03:34 36.6 C 64 16 129/60 96 Room Air 10/08/23 00:28 36.5 C 60 16 110/54 L 96 Room Air Diagnostic Findings Laboratory Results WBC 10.49 K/ul (4.8-10.8) 10/08/23 07:40 RBC 3.27 M/uL (4.20-5.40) L 10/08/23 07:40 Hgb 9.1 g/dl (12.0-16.0) L 10/08/23 07:40 Hct 27.6 % (37.0-47.0) L 10/08/23 07:40 MCV 84.4 fL (80.0-100.0) 10/08/23 07:40 MCH 27.8 pg (25.0-34.0) 10/08/23 07:40 MCHC 33.0 g/dL (32.0-36.0) 10/08/23 07:40 RDW Std Deviation 44.6 fL (36.4-46.3) 10/08/23 07:40 RDW Coeff of Jonathan 14.5 % (11.5-14.5) 10/08/23 07:40 Plt Count 244 K/uL (130-400) 10/08/23 07:40 MPV 8.9 fL (9.4-12.4) L 10/08/23 07:40 Immature Gran % (Auto) 0.4 % 10/08/23 07:40 Neut % (Auto) 83.2 % 10/08/23 07:40 Lymph % (Auto) 9.1 % 10/08/23 07:40 [place] % (Auto) 7.1 % 10/08/23 07:40 Eos % (Auto) 0.0 % 10/08/23 07:40 Baso % (Auto) 0.2 % 10/08/23 07:40 Neut # (Auto) 8.74 K/uL (1.40-6.50) H 10/08/23 07:40 Lymph # (Auto) 0.95 K/uL (1.20-3.40) L 10/08/23 07:40 [place] # (Auto) 0.74 K/uL (0.11-0.59) H 10/08/23 07:40 Eos # (Auto) 0.00 K/uL (0.00-0.50) 10/08/23 07:40 Baso # (Auto) 0.02 K/uL (0.00-0.20) 10/08/23 07:40 Immature Gran # (Auto) 0.04 K/uL (0.01-0.20) 10/08/23 07:40 Blood Type A Positive 10/07/23 11:23 Antibody Screen NEGATIVE 10/07/23 11:23 Impressions Pelvis X-Ray 10/07/23 16:15 XR pelvis 1-2V routine CLINICAL HISTORY: Postoperative evaluation. COMPARISON: Pelvis radiograph August 04, 2023. FINDINGS: Alignment of the total right hip arthroplasty is anatomic. There is no periprosthetic fracture or unexpected radiopaque foreign body. Left hip arthroplasty is also intact. IMPRESSION: Expected findings following right hip arthroplasty. ACT 112: Negative or not required by law. Electronically signed by: Norberto Clemente M.D. 10/07/2023 4:51 PM
[2023-10-08 09:43] LABS: BUN Creatinine Ratio 22.8 (10-20); Calcium 8.2 mg/dl (8.6-10.3); Creatinine Clr Calc Pharmacy 71.8 ml/min; Est GFR (African American) 103.6 ml/min; Est GFR (Non-African American) 89.4 ml/min; Potassium 4.2 mmol/L (3.5-5.1)
--- NOTE | 2023-10-08 12:00 | Discharge Summary ---
Date of Service October 08, 2023 Admission HPI Per Admitting Provider History of Present Illness (including history relevant to procedure): This 78-year-old female presents to the clinic today for preoperative history and physical. Patient has a longstanding history of right hip pain. She had her left hip replaced back in mid June of this year and has had great results but has noticed increased pain with ambulation in her right hip. She is elected to proceed with surgical intervention at this time. Review Of Systems: A 12 point review of systems is performed and is unremarkable except for those things to in the HPI and past medical history. Past Medical History: Problems: S/P total left hip arthroplasty Osteoporosis Hallux rigidus, right foot Bilateral hip pain Synovial cyst of popliteal space [Wilson], left knee Other meniscus derangements, posterior horn of lateral meniscus, left knee Cyst of left knee joint History of actinic keratosis Actinic keratoses Milia Neoplasm of uncertain behavior of skin History of Lyme disease Procedure History Procedure Procedure Date Comments colonoscopy more 10 years ago Ultrasound scan-Abdomen 09/14/2017 - Unremarkable abdominal US Procedure 02/04/2017 - Venous dopplar lower extremity unilatStudy is negative for deep venous thrombosisComplex popliteal cyst posterior to left knee measuring [id number] Shave biopsy Left total hip arthroplasty 01/28/2015 Allergies and Sensitivities: NKA Current Home Meds: (Last Updated 09/16 10:35) acetaminophen (Tylenol) bifidobacterium-lactobacillus (Probiotic Formula oral capsule) meloxicam (meloxicam 7.5 mg oral tablet) 7.5 mg PO Daily Initial Wt: 09/16 56.6 kg 125 lb Admission Exam Per Admitting Provider Physical Exam: (relevant to the procedure, including heart and lung evaluation) General: Alert and oriented x 3 with proper grooming and hygiene Eyes: Pupils are equal and reactive to light with accommodation. Extraocular movements are intact Throat: Posterior oropharynx clear with absence of edema, erythema or exudate. Dentition is appropriate. Cardiac: Regular rate and rhythm with no murmurs or gallops appreciated Lungs: Clear to auscultation throughout with no wheezing, rales or rhonchi Abdomen: Nonobese, nondistended, nontender with normal active bowel sounds Extremities: Right hip; flexion is limited to 90 degrees, internal rotation to - 5 degrees and external rotation to 25 degrees. Straight leg raise test causes referred pain to the groin. Logroll test causes referred pain as well. Stinchfield test positive. Scour and impingement test are both positive. Patient experiences tenderness to palpation in the groin. Neuro: Cranial nerves II through XII are intact no motor or sensory deficit Skin: Normal in appearance with no open skin areas or discharge Principal Diagnosis Right hip osteoarthritis Discharge Exam Right hip: Outer dressing was removed. Silverlon is clean dry and intact and left in place. Patient is able to perform an active straight leg raise test. She is able to actively dorsi and plantarflex her foot without issue. She is able to detect light sensation to touch over the pads of all digits. She elicits no pain with light passive hip flexion near 90 degrees. She does have a slight pulling sensation with light passive internal rotation but no discomfort with external rotation. She is neurovascularly intact in the right lower extremity. Her quad strength is 4 out of 5. Discharge Data Allergies Allergy/AdvReac Type Severity Reaction Status Date / Time No Known Allergies Allergy Verified 10/07/23 11:31 Procedures Performed Operation Date: 10/07/23 13:20 Actual Procedures p Right Total Hip Arthroplasty(Right) - Aramis Mullen MD Hospital Course (1) S/P total hip arthroplasty: Patient had an uneventful overnight stay following right total hip arthroplasty. She is very pleased with the results of the surgery. She is planning on discharge home later this afternoon with a known physical therapy beginning over the weekend. Weightbearing as tolerated with walker assistance PT/OT Total hip precautions were reviewed Pain control with p.o. medication Ice with easy wrap Keep Silverlon dressing in place Abduction pillow use x 6 weeks DVT prophylaxis with aspirin and ARETHA stockings Plan is to discharge home today with a known physical therapy for the first 2 weeks Follow-up at [facility] orthopedics as previously scheduled With questions contact our clinic at [phone] Total Time Total Time Spent Total Time Spent (In Minutes): 20 mins Discharge Plan Discharge Items Patient Disposition: Home - Self-Care Reason For Visit: Right Hip Osteoarthritis Discharge Diagnosis: Right Hip Osteoarthritis Activity: As commented below Lifting: None Bathing: Keep incision dry Bathing Comment: may shower tomorrow Sexual Activity: Wait until after follow-up appointment Exercise/Sports: Wait until after follow-up appointment Driving/Machine Use: No driving until cleared by origination specialist Weightbearing Comment: as tolerated with walker assistance Non-emergency contact: Surgeon Call non-emergency contact if: you have any medication questions, your pain is not controlled, your temperature is above 101.5, your wound has increased draina ge and your wound pain has increased Follow-up/Referrals: Rosalva Tucker [Primary Care Provider] - Diet: Regular Addtl Attending Provider Instructions: Post-operative Instructions Dear Patient and Family/Friends, Before you are discharged from the hospital, it is important to know what to expect when you get home after surgery. To that end, we have created this sheet of discharge instructions which covers many commonly asked questions. Make sure you go through this sheet in its entirety with your nurse before you are discharged. Please note that we will go over the specifics of your surgery and recovery when you return for your first post-operative visit. Sincerely, Dr. Mullen Medications 1. Oxycodone 5 mg: Take 1-2 tabs every 4-6 hours as needed for postoperative pain control. A prescription for this medication will be sent to your pharmacy 2. Aspirin 81 mg: Take 1 tab twice daily for the first 30 days postoperatively for blood clot prevention 3. Meloxicam 7.5 mg: Resume your daily regimen of this medication. If you need a refill contact our clinic. 4. Extra strength Tylenol 500 mg: Resume your daily regimen for this medication as well. If additional medication is needed please purchase [id number] at your local pharmacy. Pain Expect to be in a fair amount of pain after surgery. Remember, our goal is not to eliminate your pain, but to make it tolerable. It is a good idea to stay ahead of your pain by taking the medications you were prescribed once you get home. Typically, the pain starts improving 3-7 days after surgery. You should start weaning off the narcotic pain medication (oxycodone, hydrocodone, hydromorphone, morphine) as soon as your pain improves. Please call our office if your pain is not adequately controlled. Ice Ice your operative site at least 5 times a day for 15-30 minutes at a time. Make sure you have a thin cloth between the ice or cooling unit and your skin to prevent wright bite. This is especially important if you received a nerve block. Continue icing your operative site for the first 5-7 days after surgery, then as needed. Diet/Nausea/Vomiting Start by drinking clear liquids and eating crackers. If you can tolerate this, then you may resume your normal diet. If you feel nauseated or vomit, take Zofran/ondansetron (if prescribed). Please call our office if you have intractable nausea or vomiting, or, if after hours, you may go to the Emergency Room for help. Constipation Constipation is a common side effect of narcotic pain medication. If you have not had a bowel movement within 2 days after surgery, we recommend purchasing an over the counter laxative such as Milk of Magnesia, Dulcolax, or Miralax from a local pharmacy, and taking it as instructed. Call our clinic if any questions. Nerve block The anesthesia team sometimes places a nerve block to help with post-operative pain control. This results in significant numbness and inability to move the extremity. The nerve block usually wears off in 8-12 hours, but sometimes can last up to 24 hours. Please call our office if you are still unable to move your extremity after 24 hours, unless you received a pain pump to take home. Nerve blocks typically wear off quickly, so start taking pain medication as soon as you start feeling soreness near your surgical site. Weight bearing and Range of Motion. Do not bear any weight through your operative extremity immediately after surgery. If you had upper extremity surgery, do not lift anything with that arm. If you are in a knee brace, keep it locked in place until your follow-up. We will discuss your weight bearing, range of motion, and lifting restrictions in detail at your first post-operative appointment. Continuous Passive Motion (CPM) Machine If you were prescribed a CPM machine, it will start after your first post- operative appointment, at which time we will give you instructions on the range of motion settings and duration of treatment Physical therapy You will be given a prescription for physical therapy or occupational therapy at your first post-operative appointment. Typically, patients start therapy within 1 week of surgery Wound care and showering We will inspect your wound at your first post-operative visit, and may do a dressing change at that time. Most patients will be in a water-proof dressing that is removed 14 days after surgery. It is normal to see some dried blood on the dressing. Do not remove your dressing, paper strips or sutures yourself unless you are given permission. Showering is allowed the day after surgery. Do not scrub or remove any dressings. The wound should not be submerged underwater (i.e. in a bathtub or pool) until 4 weeks after surgery ARETHA stockings If you were given white stockings, these are to be worn at all times except to shower (on both legs) for the first 2 weeks after surgery. Driving You may not drive while taking narcotic pain medication or while in a cast, splint, sling or brace. You, the patient, need to make the final determination about when you are safe to drive, however, the earliest you may consider driving after surgery is below: Hand/Wrist/Elbow Surgery: 3 days Shoulder Surgery: 2 weeks Hip,/Knee/Ankle Surgery: 4 weeks Fracture repair: 6 weeks Return to Work Your return to work depends on what surgery was done and what type of work you do. Please bring any paperwork your employer needs completed to your first post-operative visit. Also, bring a description of your job duties, as this helps us to understand what risks you may face at work. Travel Avoid long distance travel (greater than 1 hour) in airplanes and cars for the first 6 weeks after surgery. If you must travel, you need to have a Doppler ultrasound done before you travel to rule out a blood clot in your legs. Follow-up You should have a follow-up appointment already scheduled 1-2 days after surgery. If not, please contact our office to make this appointment before you leave the hospital. When to call the office It is normal to have swelling and bruising in the limb that was operated on. This will improve with time. It is also normal to have fevers for the first 2 days after surgery. Reasons you should call your doctor include: Uncontrolled pain; Nausea, vomiting, or constipation that does not improve with medication; Fevers over 101.5, chills, sweats; Drainage or bleeding from the wound; Foul odor; Spreading areas of redness; Any other concerns Pending Studies at Discharge: No Stand-Alone Forms: My [employer], Smoking Cessation Medications and DC Order Prescriptions: New aspirin 81 mg Tablet,Delayed Release (Dr/Ec) 81 mg PO BID 30 Days Qty: 60 0RF oxycodone 5 mg Tablet 5 - 10 mg PO Q4H MDD Ongoing Tx PRN (Reason: Post op pain control) Qty: 28 0RF Continued multivitamin Tablet 1 tab PO QAM ascorbic acid (vitamin C) [Vitamin C] 500 mg Tablet 1,000 mg PO QAM acetaminophen 500 mg Capsule 1,000 mg PO Q6H PRN (Reason: Pain) Patient Comments: has been taking QID every day meloxicam 7.5 mg Tablet 15 mg PO QAM 30 Days Qty: 60 1RF Discharge Orders: Discharge Order (Routine); Ordered 10/08/23 Ordered By: Elvis Hall/Other Patient Handouts: Hip Replace Post Op Admission Data Admit Date/Time: 10/07/23 16:15 Attending Provider: Aramis Mullen Admit Provider: Aramis Mullen Primary Care Provider: Rosalva Tucker Other Providers: [facility] Other Interventions: Discharge Summary Assessment (RN) Last Done: 10/08/23 10:02
[2023-10-08] MEDS ORDERED: CeleBREX 200 MG CAP PO SCH (21:00)
== END 2023-10-08 11:21 | disposition home health service (06) | DRG 470 ==
LOC: ASU 11:03 → 3N 16:15 → INTOOBSV 16:15